=== PATIENT | male | born 1975 | race Caucasian/White ===

== ENCOUNTER 2024-05-10 08:29 | Inpatient (IN) | payer SELFPAY ==
[2024-05-10] VITALS (20 sets, daily range): BP systolic 93–152; BP diastolic 62–92; PULSE 96–132; RESP 16–32; TEMP 36.8–37.2; O2SAT 89–97; BMI 25.8; BMI 26.5
--- NOTE | 2024-05-10 08:28 | ECG_ITS ---
APPROVED REPORT Exam: Resting ECG HR:131 bpm ECG Measurements Heart Rate 131 AXES FL 124 P 62 QRSd 94 QRS 83 QT 333 T 237 QTc [address] DEVIATION AND MODERATE T-WAVE ABNORMALITY, CONSIDER INFERIOR ISCHEMIA [-0.1+ mV T-WAVE IN II/aVF] Electronically signed by : EPIFANIO COLLADO, 05/11/2024 19:41:39
--- NOTE | 2024-05-10 08:34 | CT_ITS ---
PROCEDURE INFORMATION: Exam: CT Abdomen And Pelvis With Contrast Exam date and time: 05/10/2024 9:18 AM Age: 48 years old Clinical indication: Abdominal pain; Flank; Left; Additional info: L flank pain TECHNIQUE: Imaging protocol: Computed tomography of the abdomen and pelvis with contrast. 3D rendering (Not supervised by radiologist): MIP and/or 3D reconstructed images were created by the technologist. Radiation optimization: All CT scans at this facility use at least one of these dose optimization techniques: automated exposure control; mA and/or kV adjustment per patient size (includes targeted exams where dose is matched to clinical indication); or iterative reconstruction. Contrast material: ISOVUE; Contrast volume: 70 ml; Contrast route: IV; COMPARISON: CT ANGIO CHEST PE PROTOCOL 05/10/2024 9:18 AM FINDINGS: Liver: Hepatic cirrhosis. Gallbladder and biliary ducts: Normal. No calcified stones. No ductal dilation. Pancreas: Normal. No ductal dilation. Spleen: Splenomegaly measures 17.7 cm in craniocaudal dimension. Adrenal glands: Normal. No mass. Kidneys and ureters: Normal. No hydronephrosis. Stomach and bowel: Bowel wall thickening within the ascending and descending colon, may be accentuated by adjacent ascites. Nonspecific colitis cannot be excluded. Appendix: No evidence of appendicitis. Intraperitoneal space: Moderate abdominal and pelvic ascites. Vasculature: Esophageal varices. No abdominal aortic aneurysm. Lymph nodes: Shotty inguinal lymph nodes bilaterally. Urinary bladder: Unremarkable as visualized. Reproductive: Unremarkable as visualized. Bones/joints: Unremarkable. No acute fracture. Soft tissues: Anasarca. IMPRESSION: 1. Splenomegaly measures 17.7 cm in craniocaudal dimension. 2. Hepatic cirrhosis with sequela of portal hypertension as detailed above. 3. Bowel wall thickening within the ascending and descending colon, may be accentuated by adjacent ascites. Nonspecific colitis cannot be excluded.
--- NOTE | 2024-05-10 08:36 | CT_ITS ---
PROCEDURE INFORMATION: Exam: CT Head Without Contrast Exam date and time: 05/10/2024 9:15 AM Age: 48 years old Clinical indication: Altered mental status/memory loss; Additional info: AMS TECHNIQUE: Imaging protocol: Computed tomography of the head without contrast. Radiation optimization: All CT scans at this facility use at least one of these dose optimization techniques: automated exposure control; mA and/or kV adjustment per patient size (includes targeted exams where dose is matched to clinical indication); or iterative reconstruction. COMPARISON: No relevant prior studies available. FINDINGS: Limitations: Study is technically limited due to motion artifact. Brain: Diffuse confluent decreased attenuation throughout the periventricular white matter bilaterally that may be due to extensive chronic white matter microvascular changes with diffuse leukoencephalopathy to be excluded. Small rounded cystic density projecting along the anterior aspect of the midbrain may be secondary to old infarct. No compelling evidence of acute infarct. There is no evidence of intracranial hemorrhage. Cortical sulci are unremarkable. Cerebral ventricles: Unremarkable for age. Paranasal sinuses: Visualized sinuses are unremarkable. No fluid levels. Mastoid air cells: Visualized mastoid air cells are well aerated. Bones: Unremarkable. No acute fracture. Soft tissues: Unremarkable. IMPRESSION: 1. Limited study. No acute intracranial abnormalities. 2. Small rounded hypodensity anterior aspect lung midbrain likely longstanding and may be secondary to old infarct which could be better assessed with MRI exam. 3. Findings are inconclusive for extensive white matter microvascular changes versus diffuse leukoencephalopathy which also could be better assessed with MRI examination.
--- NOTE | 2024-05-10 08:37 | XR_ITS ---
PROCEDURE INFORMATION: Exam: XR Chest Exam date and time: 05/10/2024 9:20 AM Age: 48 years old Clinical indication: Shortness of breath; Additional info: Hypoxia TECHNIQUE: Imaging protocol: Radiologic exam of the chest. Views: 1 view. COMPARISON: CT ANGIO CHEST PE PROTOCOL 05/10/2024 9:18 AM FINDINGS: Lungs: Patchy airspace opacities in the upper lobes bilaterally, concerning for infectious or inflammatory process. Pleural spaces: Large pleural effusions bilaterally. Heart/Mediastinum: Unremarkable. No cardiomegaly. Bones/joints: Unremarkable. IMPRESSION: 1. Large pleural effusions bilaterally. 2. Patchy airspace opacities in the upper lobes bilaterally, concerning for infectious or inflammatory process.
--- NOTE | 2024-05-10 08:37 | CT_ITS ---
PROCEDURE INFORMATION: Exam: CTA Chest With Contrast Exam date and time: 05/10/2024 9:18 AM Age: 48 years old Clinical indication: Other: Hypoxia TECHNIQUE: Imaging protocol: Computed tomographic angiography of the chest with contrast. Exam focused on the arteries. 3D rendering (Not supervised by radiologist): MIP and/or 3D reconstructed images were created by the technologist. Radiation optimization: All CT scans at this facility use at least one of these dose optimization techniques: automated exposure control; mA and/or kV adjustment per patient size (includes targeted exams where dose is matched to clinical indication); or iterative reconstruction. Contrast material: ISOVUE 370; Contrast volume: 70 ml; Contrast route: INTRAVENOUS (IV); COMPARISON: CT ABDOMEN PELVIS W CON 05/10/2024 9:18 AM FINDINGS: Pulmonary arteries: No central pulmonary embolism. Aorta: Unremarkable. No aortic aneurysm. No aortic dissection. Lungs: Patchy groundglass densities within the aerated upper and mid lung zones bilaterally, nonspecific finding. Differential includes infectious process, chronic interstitial disease, and acute alveolar disease. Bibasilar atelectasis. Pleural spaces: Large pleural effusions, right slightly larger than left. Heart: Unremarkable. No cardiomegaly. No pericardial effusion. Lymph nodes: Unremarkable. No enlarged lymph nodes. Bones/joints: Unremarkable. No acute fracture. Soft tissues: Unremarkable. IMPRESSION: 1. Evaluation of vascular structures severely limited by patient motion. 2. Large pleural effusions, right slightly larger than left. 3. Patchy groundglass densities within the aerated upper and mid lung zones bilaterally, nonspecific finding. Differential includes infectious process, chronic interstitial disease, and acute alveolar disease. Clinical correlation necessary.
--- NOTE | 2024-05-10 08:42 | PC.NURSE ---
spoke with pharmacy about antibiotics and spoke with rt regarding vbg
--- NOTE | 2024-05-10 08:42 | HMH.EDGENADL ---
Discharge Plan Disposition Patient Disposition: Admitted Clinical Impressions Clinical Impression: Cirrhosis, Acute and chronic respiratory failure with hypoxia Discharge ED Provider: Brandon Orellana General Adult HPI General Chief complaint: Shortness of Breath/Dyspnea Stated complaint: Altered Menal Status Time Seen by Provider: 05/10/24 08:33 Mode of Arrival: EMS Source of Information: Patient Limitations: Altered Mental Status Description of Symptoms (Recalled from ER Triage Doc. by RN): Reports confusion and shortness of air. Patient sats were in the 70s upon arrival by ems. History of Present Illness HPI narrative: This is a 48-year-old male with a past medical history of hepatitis C, hepatitis B, cirrhosis, COPD, hypertension who presents with altered mental status and hypoxia. Reports worsening confusion and difficulty breathing. Wears 2 L nasal cannula at home chronically. Was not wearing his nasal cannula throughout the night. reported that patient was hypoxic and not at his baseline mental status, worsening in confusion and called EMS today. Patient reports worsening abdominal and lower extremity swelling. EMS reports 70% SpO2 on room air on arrival. Initiated on a nonrebreather and transported for further evaluation. Related Data Allergies Allergy/AdvReac Type Severity Reaction Status Date / Time No Known Allergies Allergy Verified 05/10/24 08:41 [facility] Disclaimer: The information contained in this section may have been updated after the patient was seen, as this information can be updated by other users. Social History Smoking Status: Current every day smoker alcohol intake: former current occupational status: unemployed Travel in the last 8 weeks: None ROS Obtained: Yes unobtainable due to mental status Physical Exam General General appearance: other Comment: Somnolent but arousable, ill-appearing Head Head exam: atraumatic Eye Eye exam: Present normal appearance, PERRL and EOMI Respiratory Respiratory exam: Present respiratory distress Cardiovascular Cardiovascular exam: Present normal rhythm and tachycardia Abdominal Exam Abdominal exam: Present soft, distention and tenderness (Diffuse); Absent guarding or rebound Extremities Exam Extremities exam: Present edema (Bilateral, 2+ to the knees) Neurological Exam Neurological exam: Absent alert (Somnolent but arousable) Expanded Neurological Exam Patient oriented to: Present person; Absent place or time Coma scale eye opening: To voice Coma scale motor response: Obeys commands Coma scale verbal response: Confused Coma scale total: 13 Skin Skin exam: Present warm and dry Medical Decision Making Medical Records Medical records reviewed: Yes I reviewed the patient's medical records. Screening: Per USPSTF and CDC recommendations, given the prevalence of disease in our region, it is our hospital?s policy to screen for HIV and viral Hepatitis for all patients aged 18 and over and those with ongoing risk factors. Cristi Inquiry Pt receiving controlled substance: No Vital Signs: 05/10/24 08:31 05/10/24 08:44 05/10/24 09:01 Temperature 99.0 F Temperature Source Rectal Pulse Rate 127 H 129 H Pulse Rate [Radial] 129 H Respiratory Rate 22 18 27 H Blood Pressure 120/66 136/92 H Blood Pressure [Right Arm] 131/84 Blood Pressure Mean 84 106 Blood Pressure Mean [Right Arm] 99 Blood Pressure Source Blood Pressure Source [Right Arm] Automatic Cuff Blood Pressure Position Blood Pressure Position [Right Arm] Sitting 02 Sat by Pulse Oximetry 89 L 93 L 90 L Oxygen Delivery Method Nasal Cannula Nasal Cannula Nasal Cannula Oxygen Flow Rate (LPM) 3 2 2 05/10/24 09:32 05/10/24 10:01 05/10/24 10:02 Temperature Temperature Source Pulse Rate 128 H 130 H 132 H Pulse Rate [Radial] Respiratory Rate 19 Blood Pressure 152/71 H 127/77 125/69 Blood Pressure [Right Arm] Blood Pressure Mean 98 93 100 Blood Pressure Mean [Right Arm] Blood Pressure Source Blood Pressure Source [Right Arm] Blood Pressure Position Blood Pressure Position [Right Arm] 02 Sat by Pulse Oximetry 92 L 90 L 91 L Oxygen Delivery Method Nasal Cannula Nasal Cannula Nasal Cannula Oxygen Flow Rate (LPM) 2 2 2 05/10/24 10:21 05/10/24 11:08 05/10/24 11:44 Temperature 98.6 F Temperature Source Oral Pulse Rate 130 H 126 H 126 H Pulse Rate [Radial] Respiratory Rate 16 17 16 Blood Pressure 125/69 115/78 126/78 Blood Pressure [Right Arm] Blood Pressure Mean Blood Pressure Mean [Right Arm] Blood Pressure Source Automatic Cuff Blood Pressure Source [Right Arm] Blood Pressure Position Supine Blood Pressure Position [Right Arm] 02 Sat by Pulse Oximetry 90 L 90 L Oxygen Delivery Method Nasal Cannula Nasal Cannula Nasal Cannula Oxygen Flow Rate (LPM) 2 2 2 Lab Data Lab Results 05/10/24 08:32: WBC 12.9 H, RBC 4.54 L, Hgb 11.7 L, Hct 35.3 L, MCV 77.7 L, MCH 25.8 L, MCHC 33.1, RDW 19.1 H, Plt Count 82 L, MPV 7.2 L, Neut % (Auto) 90.4 H, Lymph % (Auto) 4.3 L, Dane % (Auto) 4.9, Eos % (Auto) 0.3, Baso % (Auto) 0.2, Neut # (Auto) 11.6 H, Lymph # (Auto) 0.5 L, Dane # (Auto) 0.6, Eos # (Auto) 0.0, Baso # (Auto) 0.0, Total Counted 100, Neutrophils % (Manual) 95 H, Lymphocytes % (Manual) 3 L, Monocytes % (Manual) 2, Platelet Estimate Moderate decrease, Anisocytosis 1+, Microcytosis 1+, Ovalocytes 1+, PT 18.7 H, INR 1.77 H, Sodium 133 L, Potassium 2.9 L*, Chloride 97 L, Carbon Dioxide 34 H, Anion Gap 4.9 L, BUN 8 L, Creatinine 0.60 L, Estimated Creat Clear 173, Estimated GFR 145, Est GFR ( Amer) 176, Glucose 85, Calcium 6.9 L, Total Bilirubin 2.3 H, AST 85 H, ALT 52, Alkaline Phosphatase 279 H, Total Protein 6.3, Albumin 2.2 L, Globulin 4.1 H, Albumin/Globulin Ratio 0.5 L, Lipase 77, Plasma/Serum Alcohol < 10 05/10/24 08:37: VBG pH 7.44 H, VBG pCO2 49.3, VBG pO2 55.3 H, VBG HCO3 32.9 H, VBG Total CO2 34.4 H, VBG O2 Saturation 88.5 H, VBG Base Excess 8.8 H, VBG Lactic Acid 2.1 H 05/10/24 09:55: Fluid Source Pleural fluid, Fluid Volume 55, Fluid Appearance Clear, Fluid RBC (Auto) < 10, Fld Tot Nucleated Cell 1103, Fld Polynuclear WBCs % 68, Fld Mononuclear WBCs % 32 05/10/24 08:32 05/10/24 08:32 Orders (Tests/Meds): ED MEDICATIONS Generic Name Dose Route Start Last Admin Trade Name Freq PRN Reason Stop Dose Admin Acetaminophen 650 mg 05/10/24 12:44 Acetaminophen 325mg Tab PO 06/09/24 12:43 Q4HP PRN Fever or Mild Pain (1-3) Piperacillin Sod/Tazobactam 100 mls @ 200 mls/hr 05/10/24 08:45 05/10/24 09:29 Sod 4.5 gm/ Sodium Chloride IV 05/20/24 08:44 200 mls/hr Q6H TANK Administration Lactulose 20 gm 05/10/24 12:50 05/10/24 13:20 Lactulose 20gm/30ml Udc PO 06/09/24 12:49 20 gm BID TANK Administration Ondansetron HCl 4 mg 05/10/24 12:44 Ondansetron 4mg/2ml Vial IV 06/09/24 12:43 Q8HP PRN Nausea Spironolactone 50 mg 05/10/24 12:20 05/10/24 13:21 Spironolactone 25mg Tablet PO 06/09/24 12:19 50 mg DAILY TANK Administration Discontinued Medications Generic Name Dose Route Start Last Admin Trade Name Freq PRN Reason Stop Dose Admin Albuterol/Ipratropium 3 ml 05/10/24 08:36 05/10/24 08:46 Ipratropium/Albuterol 3 Ml Neb IH 05/10/24 08:37 3 ml ONCE ONE Administration Furosemide 40 mg 05/10/24 10:34 05/10/24 12:18 Furosemide 40mg/4ml Vial IV 05/10/24 10:35 40 mg ONCE ONE Administration Hydromorphone HCl 0.5 mg 05/10/24 09:31 05/10/24 09:40 Hydromorphone 2mg/Ml Syringe IV 05/10/24 09:32 0.5 mg ONCE ONE Administration Lactated Ringer's 500 mls @ 999 mls/hr 05/10/24 08:36 05/10/24 08:46 Lactated Ringer's 500ml IV 05/10/24 09:06 999 mls/hr .Q31M ONE Administration Vancomycin/PEG/NADA/Lysine/Water 1.5 gm in 300 mls @ 150 mls/hr 05/10/24 09:00 05/10/24 13:20 Vancomycin 1.5gm/300ml (Peg) Premix IV 05/10/24 10:59 150 mls/hr ONCE ONE Administration Potassium Chloride/Water 100 mls @ 100 mls/hr 05/10/24 09:00 05/10/24 12:17 Potassium Chloride 10meq/100ml Ivpb IV 05/10/24 11:59 100 mls/hr Q1H TANK Administration Iopamidol 70 ml 05/10/24 09:33 05/10/24 09:35 Iopamidol-300 (61%) 100ml Vial IV 05/10/24 09:34 70 ml ONCE ONE Administration Protocol Lidocaine/Epinephrine 10 ml 05/10/24 09:38 05/10/24 11:20 Lidocaine 1% W/Epi 1:100,000 20ml Vial IJ 05/10/24 09:39 Not Given ONCE ONE Miscellaneous 1 each 05/10/24 08:45 Vancomycin Consult Request NOTAPPLIC 06/09/24 08:44 CONSULT PHARMACY ATNK Sodium Chloride 10 ml 05/10/24 09:33 05/10/24 09:34 Sodium Chloride 0.9% 10ml Syr (Rad Only) IV 05/10/24 09:34 10 ml ONCE ONE Administration Sodium Chloride 50 ml 05/10/24 09:33 05/10/24 09:34 0.9 % Sodium Chloride 50 Ml Vial IV 05/10/24 09:34 50 ml ONCE ONE Administration ORDERS Category Date Time Status CT abdomen pelvis w con Stat Cat Scan 05/10/24 08:[address] head/brain wo con Stat Cat Scan 05/10/24 08:36 Completed CTA Chest [CT angio chest PE protocol] Stat Cat Scan 05/10/24 08:37 Completed Chest XR -- portable [XR chest portable] Stat Exams 05/10/24 08:37 Completed Chest XR -- portable [XR chest portable] Stat Exams 05/10/24 10:04 Completed POCUS Point of Care (ER Only) Stat Exams 05/10/24 08:41 Completed Blood alcohol [Ethyl Alcohol] Stat Lab 05/10/24 08:32 Completed Body Fluid: Cell Count w/ Diff Stat Lab 05/10/24 09:55 Completed CBC w/Auto Diff [Complete Blood Count Auto Diff] Stat Lab 05/10/24 08:32 Completed CMP [Comprehensive Metabolic Panel] Stat Lab 05/10/24 08:32 Completed Lactate Venous Stat Lab 05/10/24 08:36 Ordered Lipase Stat Lab 05/10/24 08:32 Completed PT/INR [Prothrombin Time INR] Stat Lab 05/10/24 08:32 Completed UDS [Drug Screen,Urine] Stat Lab 05/10/24 12:50 Completed Urinalysis and Microscopic Stat Lab 05/10/24 12:50 Completed Blood Culture Stat Micro 05/10/24 08:40 Received Body Fluid Cult & Gram Stain Stat Micro 05/10/24 09:55 Results Urine Culture Stat Micro 05/10/24 12:50 Received VBG [Venous Blood Gas] Stat RT 05/10/24 08:37 Completed ECG Data Tracing #1: I reviewed this ECG and interpreted as documented below: Sinus tachycardia at a rate of 131, normal axis, QTc 410, no STEMI Medical Decision Narrative: In summary, this 48-year-old male with a past medical history of HCV, HBV, cirrhosis, COPD on 2 L nasal cannula, hypertension presents to the emergency department today with altered mental status, hypoxia, and shortness of breath. On initial evaluation patient is ill-appearing, somnolent but arousable with a GCS of 13, tachycardic to the 130s, normotensive, satting 89% on nasal cannula. Differential diagnosis includes but is not limited to hepatic encephalopathy, sepsis, SBP, pneumonia, COPD exacerbation, alcohol intoxication. Based on these concerns, I ordered CBC, CMP, VBG, lipase, alcohol, UDS, urinalysis, urine culture, blood culture, chest x-ray, CT abdomen pelvis with IV contrast, CT head. ECG personally interpreted as noted above. Patient received 500 cc of lactated Ringer's, vancomycin and Zosyn for broad-spectrum coverage of presumed sepsis for treatment. Labs personally reviewed demonstrate MELD sodium of 20 with an INR of 1.77, sodium of 133, normal creatinine at 0.60, bilirubin of 2.3, hypokalemia 2.9, respiratory alkalosis with venous pH of 7.44, lactate of 2.1, white blood cell count of 12.9. XR personally interpreted demonstrates very large bilateral pleural effusions. CT imaging personally interpreted demonstrates large bilateral pleural effusions and moderate ascites. Perform thoracentesis at bedside and send off fluid studies. Consulted hospital medicine for admission. Procedures Miscellaneous Procedure Procedure Performed: Lung ultrasound Limited lung ultrasound A focused ultrasound exam of the pleural spaces was performed to evaluate for pneumothorax, pulmonary edema, pleural effusion and/or consolidation. The ultrasound was performed with the following indications, as noted in the H&P: Hypoxia Identified structures: Bilateral thoracic cavities were examined. Findings: Lung sliding: -Present Pleural effusion: -Bilateral Impression: Bilateral pleural effusions Images were saved to permanent archive The study was technically adequate [facility] [id number] This study was performed by me, and I personally interpreted all images/videos. Based on my clinical judgement, these images were adequate and did not necessitate further imaging. Thoracentesis Performed thoracentesis at bedside. Consent was obtained by patient's given that he was unable to give consent due to his encephalopathy. Risks and benefits of procedure were explained to her and she was in agreement. Alternatives offered included no treatment, alternative treatment, and observation. Patient was prepped and draped in sterile fashion. Positioned on his left lateral decubitus with right thoracic cavity in the air. Performed in the fourth intercostal space, posterior axillary line. Static ultrasound was used to determine the best site for placement. Local anesthesia was achieved with lidocaine 1% with epinephrine, 10 mL. Performed thoracentesis with catheter over needle with safety centesis kit. Drained 1 L of cloudy, yellow fluid from the right chest cavity. Patient tolerated the procedure well. Removed catheter and placed Vaseline gauze over the site. Repeat chest x-ray showed no pneumothorax and improvement in aeration. No complications Critical Care Critical Care Time Critical Care Time: No
[2024-05-10 08:45] LABS: Basophils % 0.2 % (0.1-2.0); Eosinophils % 0.3 % (0.1-12.0); Hematocrit 35.3 % (42.0-52.0); Hemoglobin 11.7 g/dL (14.1-18.0); Lymphocytes # 0.5 K/mm3 (0.7-4.5); Lymphocytes % 4.3 % (10-50); Mean Corpuscular HGB Conc 33.1 g/dL (31.8-35.4); Mean Corpuscular Hemoglobin 25.8 pg (27.0-31.2); Mean Corpuscular Volume 77.7 fl (80-94); Mean Platelet Volume 7.2 fl (7.4-10.4); Monocytes # 0.6 K/mm3 (0.1-1.0); Monocytes % 4.9 % (1.7-9.3); Neutrophils # 11.6 K/mm3 (1.8-7.8); Neutrophils % 90.4 % (37.0-80.0); Platelet Count 82 K/mm3 (142-424); Red Blood Count 4.54 M/mm3 (4.60-6.20); Red Cell Distribution Width 19.1 % (11.5-17.5); White Blood Count 12.9 K/mm3 (4.8-10.8)
[2024-05-10] MEDS: RINGERS SOLUTION,LACTATED 500 ML 999 ML IV (08:46)
[2024-05-10] MEDS: IPRATROPIUM/ALBUTEROL 3 ML NEB IH ×2 (08:46→20:49)
[2024-05-10 08:48] LABS: MANUAL DIFFERENTIAL MANUAL DIFFERENTIAL (MANUAL DIFF)
[2024-05-10 08:48] LABS: VBG Base Excess 8.8 mmol/L (-2.4-2.3); VBG HCO3 32.9 mmol/L (23-30); VBG Oxygen Saturation 88.5 % (50-70); VBG PCO2 49.3 mmol/L (35-51); VBG PH 7.44 mmol/L (7.31-7.41); VBG PO2 55.3 mmol/L (28-40); VBG Total CO2 34.4 mmol/L (23-27)
[2024-05-10 08:49] LABS: Lactate Venous 2.1 mmol/L (0.4-2.0)
[2024-05-10 08:53] LABS: Alanine Aminotransferase 52 U/L (12-78); Albumin Level 2.2 g/dl (3.5-5.0); Albumin/Globulin Ratio 0.5 (1.1-1.8); Alkaline Phosphatase 279 U/L (38-126); Anion Gap 4.9 mEq/L (5-15); Aspartate Amino Transferase 85 U/L (17-59); Bilirubin,Total 2.3 mg/dl (0.2-1.3); Blood Urea Nitrogen 8 mg/dl (9-20); Calcium 6.9 mg/dl (8.4-10.2); Carbon Dioxide 34 mmol/L (22.0-30.0); Chloride 97 mmol/L (98-107); Creatinine Clearance Estimated 173 mL/min (50-200); Estimated Glomerular Filt Rate 145 ml/min (>60); GFR (African American) 176 ML/MIN (>60); Globulin 4.1 g/dL (1.3-3.2); Glucose 85 mg/dl (74-100); Lipase 77 U/L (23-300); Sodium 133 mmol/L (136-145); Total Protein,Serum 6.3 g/dl (6.3-8.2)
[2024-05-10 08:55] LABS: Ethyl Alcohol < 10 mg/dl (0-10); INR 1.77 (0.9-1.1); Prothrombin Time 18.7 seconds (10.1-12.5)
[2024-05-10 08:56] LABS: Potassium 2.9 mmoL/L (3.5-5.1)
--- NOTE | 2024-05-10 08:59 | PC.NURSE ---
Called [facility] for medical records
[2024-05-10 09:04] LABS: Lymphocytes % 3 % (10-50); Monocytes % 2 % (2-9); Neutrophils % 95 % (42-76); Total Cells Counted 100
[2024-05-10 09:05] LABS: Anisocytosis 1+; Microcytosis 1+; Ovalocytes 1+; Platelet Estimate Moderate Decrease
--- NOTE | 2024-05-10 09:08 | PC.NURSE ---
pt to ct
[2024-05-10] MEDS: PIPERACILLIN/TAZO 4.5 GM in 0.9 % SODIUM CHLORIDE 100 ML IV (09:29)
[2024-05-10] MEDS: SODIUM CHLORIDE 0.9% 10ML SYR (RAD ONLY) 10 ML IV (09:34)
[2024-05-10] MEDS: 0.9 % SODIUM CHLORIDE 50 ML VIAL IV (09:34)
[2024-05-10] MEDS: IOPAMIDOL-300 (61%) 100ML VIAL 70 ML IV (09:35)
[2024-05-10] MEDS: HYDROMORPHONE 2MG/ML SYRINGE 0.5 MG IV (09:40)
--- NOTE | 2024-05-10 10:04 | XR_ITS ---
PROCEDURE INFORMATION: Exam: XR Chest Exam date and time: 05/10/2024 10:17 AM Age: 48 years old Clinical indication: Pain; Other: S/P thora; Additional info: Repeat S/P thoracentesis TECHNIQUE: Imaging protocol: Radiologic exam of the chest. Views: 1 view. COMPARISON: CR XR CHEST PORTABLE 05/10/2024 9:20 AM FINDINGS: Lungs: Patchy airspace opacities in the upper lobes bilaterally, concerning for infectious inflammatory process. Pleural spaces: Slight decrease in right sided pleural effusion since previous. Large pleural effusions bilaterally again noted. No pneumothorax identified. Heart/Mediastinum: Unremarkable. No cardiomegaly. Bones/joints: Unremarkable. IMPRESSION: 1. Slight decrease in right sided pleural effusion since previous. Large pleural effusions bilaterally again noted. 2. No pneumothorax identified. 3. Patchy airspace opacities in the upper lobes bilaterally, concerning for infectious inflammatory process.
[2024-05-10 10:15] LABS: Appearance,Body Fld. CLEAR; Source, Body Fld. Pleural Fluid; Volume,Body Fld. 55 mL
[2024-05-10 10:16] LABS: RBC,Body Fluid < 10 cells/uL (< 10 X 10^3); TNC,Body Fluid 1103 cells/uL (< 1000)
--- NOTE | 2024-05-10 10:26 | PC.NURSE ---
DR WILLIAMSON SPEAKING WITH HOSPITALIST
[2024-05-10] MEDS: KCl 10mEq/100ml 100 ML 100 MEQ IV ×3 (10:28→15:48)
--- NOTE | 2024-05-10 10:32 | PC.NURSE ---
INFRASTRUCTURE TECHNICIAN NOTIFIED OF ADMISSION
[2024-05-10 10:35] LABS: Mononuclear WBCs,Body Fluid 32 %; Polynuclear WBC,Body Fluid 68 %
--- NOTE | 2024-05-10 10:59 | PC.NURSE ---
Report given to JUANCHO Hung on Med Surg.
--- NOTE | 2024-05-10 12:09 | EXP.HP ---
History of Present Illness *Admission Date: 05/10/24 *Reason for visit:: Decompensated cirrhosis *History of present illness: Ruslan Haley is a 48-year-old male with a medical history significant for cirrhosis, hepatitis C, hepatitis B, hypertension, opioid use disorder on methadone who presents with worsening confusion for the past few days and hypoxia. Most history was obtained from patient's as patient is currently somewhat encephalopathic. states patient has a history of cirrhosis, never has really been a alcohol drinker, however has had hepatitis which apparently has not been treated as patient's family thought it would resolve on its own. Per , patient has been more confused over the past few days and had significant volume overload this past week. They followed up with her PCP who prescribed torsemide, in addition to patient's home Lasix and spironolactone for volume overload. This seemed to have resolved fluid overload. However, patient's confusion has not resolved. EMS states patient's home oxygen was in the 70s. Tachycardic up to 129. Currently requiring 3 L nasal cannula. Workup in the ED significant for WBC 12.9, platelet 82, potassium 2.9, total bili 2.3, AST 85, ALP 79. ED provider did a diagnostic paracentesis which revealed polynuclear WBCs 750. UDS positive for methadone. Case discussed with ED provider and decision was made to admit patient for sepsis secondary to SBP, and decompensated cirrhosis. [facility] Disclaimer: The information contained in this section may have been updated after the patient was seen, as this information can be updated by other users. Social History Smoking Status: Current every day smoker alcohol intake: former current occupational status: unemployed Travel in the last 8 weeks: None Other Medical History Have you received the Flu Vaccine for this season: No Have you received the Pneumonia Vaccine: No Meds Home Medications and Allergies New Prescriptions to Start Prescriptions: Allergies Allergy/AdvReac Type Severity Reaction Status Date / Time No Known Allergies Allergy Verified 05/10/24 08:41 Exam Data for Last 24 hours Vital signs and Labs for Last 24 Hours: Temp Pulse Resp BP Pulse Ox O2 Del Method O2 Flow Rate 98.6 F 126 H 16 126/78 90 L Nasal Cannula 2 05/10/24 11:44 05/10/24 11:44 05/10/24 11:44 05/10/24 11:44 05/10/24 11:08 05/10/24 11:44 05/10/24 11:44 Laboratory Results - last 24 hr 05/10/24 08:32: WBC 12.9 H, RBC 4.54 L, Hgb 11.7 L, Hct 35.3 L, MCV 77.7 L, MCH 25.8 L, MCHC 33.1, RDW 19.1 H, Plt Count 82 L, MPV 7.2 L, Neut % (Auto) 90.4 H, Lymph % (Auto) 4.3 L, [place] % (Auto) 4.9, Eos % (Auto) 0.3, Baso % (Auto) 0.2, Neut # (Auto) 11.6 H, Lymph # (Auto) 0.5 L, [place] # (Auto) 0.6, Eos # (Auto) 0.0, Baso # (Auto) 0.0, Total Counted 100, Neutrophils % (Manual) 95 H, Lymphocytes % (Manual) 3 L, Monocytes % (Manual) 2, Platelet Estimate Moderate decrease, Anisocytosis 1+, Microcytosis 1+, Ovalocytes 1+, PT 18.7 H, INR 1.77 H, Sodium 133 L, Potassium 2.9 L*, Chloride 97 L, Carbon Dioxide 34 H, Anion Gap 4.9 L, BUN 8 L, Creatinine 0.60 L, Estimated Creat Clear 173, Estimated GFR 145, Est GFR ( Amer) 176, Glucose 85, Calcium 6.9 L, Total Bilirubin 2.3 H, AST 85 H, ALT 52, Alkaline Phosphatase 279 H, Total Protein 6.3, Albumin 2.2 L, Globulin 4.1 H, Albumin/Globulin Ratio 0.5 L, Lipase 77, Plasma/Serum Alcohol < 10 05/10/24 08:37: VBG pH 7.44 H, VBG pCO2 49.3, VBG pO2 55.3 H, VBG HCO3 32.9 H, VBG Total CO2 34.4 H, VBG O2 Saturation 88.5 H, VBG Base Excess 8.8 H, VBG Lactic Acid 2.1 H 05/10/24 09:55: Fluid Source Pleural fluid, Fluid Volume 55, Fluid Appearance Clear, Fluid RBC (Auto) < 10, Fld Tot Nucleated Cell 1103, Fld Polynuclear WBCs % 68, Fld Mononuclear WBCs % 32 I & O for Last 24 hours: Intake & Output 05/07/24 05/08/24 05/09/24 05/10/24 23:59 23:59 23:59 23:59 Weight 79.379 kg Constitutional Constitutional: no acute distress Comments: Intermittently confused. *Routine HEENT Exam Head: Present normocephalic Eye: Present EOMI and PERRL ENT: Present mucous membranes moist *Routine Neck Exam Neck: Present supple; Absent lymphadenopathy *Routine Respiratory Exam Respiratory: Present CTA bilaterally *Routine Cardiovascular Exam Cardiovascular: Present RRR *Routine Abdominal Exam Abdominal: Present soft, normoactive bowel sounds and tenderness Comments: Distended abdomen with minimal fluid wave. Tenderness to palpation in the lower quadrants. No peritoneal signs. *Routine Rectal Exam Rectal:: deferred *Routine Genitalia Exam Genitalia:: deferred *Routine Extremities Exam Extremities: Absent cyanosis, clubbing or edema *Routine Skin Exam Skin: Present warm; Absent rash *Routine Neurological Exam Neurological: Present alert Assessment and Plan *Assessment and plan (1) Acute and chronic respiratory failure with hypoxia: Status: Acute Category: Medical Code(s): J96.21 - Acute and chronic respiratory failure with hypoxia (2) Cirrhosis: Status: Acute Category: Medical Code(s): K74.60 - Unspecified cirrhosis of liver (3) Decompensated cirrhosis: Status: Acute Category: Medical Code(s): K72.90 - Hepatic failure, unspecified without coma; K74.60 - Unspecified cirrhosis of liver (4) SBP (spontaneous bacterial peritonitis): Status: Acute Category: Medical Code(s): K65.2 - Spontaneous bacterial peritonitis (5) Hepatic encephalopathy: Status: Acute Category: Medical Code(s): K76.82 - Hepatic encephalopathy (6) Bilateral pleural effusion: Status: Acute Category: Medical Code(s): J90 - Pleural effusion, not elsewhere classified (7) Pulmonary edema: Status: Acute Category: Medical Code(s): J81.1 - Chronic pulmonary edema (8) Opioid use disorder: Status: Acute Category: Medical Code(s): F11.90 - Opioid use, unspecified, uncomplicated (9) History of hepatitis: Status: Acute Category: Medical Code(s): Z86.19 - Personal history of other infectious and parasitic diseases Plan Ruslan Haley is a 48-year-old male with a medical history significant for cirrhosis, hepatitis C, hepatitis B, hypertension, opioid use disorder on methadone who presents with worsening confusion for the past few days and hypoxia. Most history was obtained from patient's as patient is currently somewhat encephalopathic. states patient has a history of cirrhosis, never has really been a alcohol drinker, however has had hepatitis which apparently has not been treated as patient's family thought it would resolve on its own. Per , patient has been more confused over the past few days and had significant volume overload this past week. They followed up with her PCP who prescribed torsemide, in addition to patient's home Lasix and spironolactone for volume overload. This seemed to have resolved fluid overload. However, patient's confusion has not resolved. EMS states patient's home oxygen was in the 70s. Tachycardic up to 129. Currently requiring 3 L nasal cannula. Workup in the ED significant for WBC 12.9, platelet 82, potassium 2.9, total bili 2.3, AST 85, ALP 79. ED provider did a diagnostic paracentesis which revealed polynuclear WBCs 750. UDS positive for methadone. Case discussed with ED provider and decision was made to admit patient for sepsis secondary to SBP, and decompensated cirrhosis. #Sepsis #Spontaneous bacterial peritonitis #Decompensated cirrhosis #Hepatic encephalopathy #Acute hypoxic respiratory failure #Large bilateral pleural effusions #Pulmonary edema #History of esophageal varices ? Patient intermittently confused, disoriented, hyperreflexive. No focal neurological signs. CT head did not show acute findings. ? CT abdomen/pelvis reveals moderate abdominal and pelvic ascites, and esophageal varices. Also showed bowel wall thickening of the ascending and descending colon, infectious versus accentuation from ascites. ? MELD sodium score 18, 6% estimated 3-month mortality. Apparently follows with GI, but has not in quite some time. says no alcohol use for many years. ? Bilateral lower extremity pitting edema 2+ to above knees. CTA chest shows large bilateral pleural effusions, right larger than left. Patchy groundglass densities likely represent pulmonary edema versus pneumonia. ? Diagnostic paracentesis revealed polynuclear WBCs 750. There is minimal abdominal fluid wave, tenderness to palpation without peritoneal signs. ? Initial WBC 12.9 with tachycardia up to 127. Ammonia normal at 11. ? Per , patient has been compliant with Lasix 40 mg, spironolactone 50 mg at home. ? Started IV Lasix 40 mg twice daily, spironolactone 50 mg. Follow urine output, renal function, electrolytes. ? Lactulose 20 mg twice daily, goal 2-3 bowel movements per day. ? Started Coreg 6.25 mg twice daily for history of esophageal varices and tachycardia up to 130. ? Ceftriaxone, Flagyl day 1. Flagyl for possible colitis. ? Follow-up blood cultures. #History of hepatitis C, hepatitis B ?Presumably has not been treated. ? Follow-up hepatitis panel. Will need quantitative testing if these are positive. #History of opioid use disorder ? Takes methadone 75 mg daily. Prescribed by [facility]. History of heroin use disorder. states he has not been using illicit opioids for the past 8 years. ? Pending verification by pharmacy. Full code DVT prophylaxis: SCDs, thrombocytopenia
[2024-05-10] MEDS: FUROSEMIDE 40MG/4ML VIAL 40 MG IV ×2 (12:18→15:40)
[2024-05-10 12:50] LABS: Reflex Lactic Add Lactic Reflex
[2024-05-10 12:54] LABS: Microscopic, Urine URINE MICROSCOPIC (MICROSCOPIC)
[2024-05-10 12:57] LABS: Appearance,Urine CLEAR (Clear); Bilirubin,Urine Negative (Negative); Blood, Urine TRACE-I (Negative); Color,Urine YELLOW (Yellow); Glucose,Urine (UA) Negative (Negative); Ketones,Urine Negative (Negative); Leukocyte Esterase,Urine Negative (Negative); Nitrate,Urine Negative (Negative); Protein,Urine Negative (Negative); Urobilinogen,Urine 0.2 EU/dl (0.2)
[2024-05-10 13:04] LABS: Bacteria,Urine Trace /lpf; RBC,Urine Occasional #/hpf (0-3); Squamous Epithelial Cell,Urine Occasional #/hpf (0-5)
[2024-05-10 13:08] LABS: Barbiturates Screen,Urine Negative ng/ml (<200)
[2024-05-10 13:09] LABS: Amphetamine/Metha Screen,Urine Negative ng/ml (<1000); Benzodiazepines Screen,Urine Negative ng/ml (<200)
[2024-05-10 13:10] LABS: Cannabinoid Screen,Urine Negative ng/ml (<50)
[2024-05-10 13:11] LABS: Cocaine Screen,Urine Negative ng/ml (<300); Methadone Screen,Urine Positive ng/ml (<300)
[2024-05-10 13:12] LABS: Opiate Screen,Urine Negative ng/ml (<300)
[2024-05-10 13:13] LABS: Phencyclidine Screen,Urine Negative ng/ml (<25)
[2024-05-10] MEDS: VANCOMYCIN/WATER FOR INJ (PEG) 1.5 GM/300 ML PIGGYBACK IV (13:20)
[2024-05-10] MEDS: LACTULOSE 20GM/30ML UDC 20 GM PO ×2 (13:20→20:03)
[2024-05-10] MEDS: SPIRONOLACTONE 25MG TABLET 50 MG PO (13:21)
[2024-05-10 13:30] LABS: Lactic Acid Follow Up (RFLX 1) 2.2 mmol/L (0.7-2.1)
[2024-05-10 14:01] LABS: Ammonia 11 umol/L (9-30)
[2024-05-10 15:16] LABS: Reflex Lactic (2 hrs) Add Lactic Reflex
[2024-05-10 16:03] LABS: Lactic Acid Follow up (RFLX 2) 1.7 mmol/L (0.7-2.1)
[2024-05-10] MEDS: METRONIDAZ/SOD CHL 500 MG/100 ML PIGGYBACK 100 MG IV ×2 (17:14→23:23)
[2024-05-10 18:08] LABS: Chloride 98 mmol/L (98-107); Sodium 135 mmol/L (136-145)
[2024-05-10 18:11] LABS: Anion Gap 6.8 mEq/L (5-15); Blood Urea Nitrogen 9 mg/dl (9-20); Calcium 7.1 mg/dl (8.4-10.2); Carbon Dioxide 33 mmol/L (22.0-30.0); Creatinine Clearance Estimated 172 mL/min (50-200); Estimated Glomerular Filt Rate 145 ml/min (>60); GFR (African American) 176 ML/MIN (>60); Glucose 56 mg/dl (74-100); Magnesium 1.4 mg/dl (1.6-2.3)
[2024-05-10] MEDS: CEFTRIAXONE SODIUM 2 GM in 0.9 % SODIUM CHLORIDE 100 ML IV (18:18)
[2024-05-10 18:20] LABS: Potassium 2.8 mmoL/L (3.5-5.1)
[2024-05-10] MEDS: CARVEDILOL 6.25MG TABLET 6.25 MG PO (18:20)
--- NOTE | 2024-05-10 18:28 | PC.NURSE ---
hospitalist made aware of critical K+ of 2.8. no new orders. instructed to follow electrolyte replacement protocol.
[2024-05-10] MEDS: POTASSIUM CHLORIDE 20MEQ TAB 40 MEQ PO ×2 (18:59→23:23)
[2024-05-10] MEDS: MAGNESIUM SULFATE IN WATER 2 GM/50 ML PIGGYBACK IV ×3 (18:59→21:15)
--- NOTE | 2024-05-10 20:01 | PC.NURSE ---
updated med list by external pharmacy
--- NOTE | 2024-05-10 20:53 | ECG_ITS ---
APPROVED REPORT Exam: Resting ECG HR:95 bpm ECG Measurements Heart Rate 95 AXES SC 143 P 68 QRSd 106 QRS 60 QT 314 T -5 QTc 367 Conclusion SINUS RHYTHM NONSPECIFIC ST & T-WAVE ABNORMALITY ABNORMAL ECG UNCONFIRMED REPORT Electronically signed by : Franky Luo MD 05/11/2024 21:19:51
[2024-05-10] MEDS: FAMOTIDINE 20MG/2ML VIAL 20 MG IV (21:18)
--- NOTE | 2024-05-10 21:27 | PC.NURSE ---
upon assess patient around 1999, patient alert to name and birthday. he was SOB on 2L NC around 78% then increased to 4L NC and maintained above 90%, abd ascitic but non-tender, wheezing lung sounds (RT gave stat duoneb), pitting thigh edema - Hospitalist notified and came to bedside. Patient is being transferred to ICU from [facility]. Patient wanted me to contact , attempted to call the number he provided [phone] and person on the other line stated they wasn't Naomie - Patient was informed we have a Ashley listed as his person to notify and he declined us notifying her at this time, patients wishes followed.
--- NOTE | 2024-05-10 21:36 | P.PN_ITS ---
<Statement entered by Almas Shepard MD - 05/11/24 22:45> I personally examined patient and agree with CORPORATE STRATEGIST's plan of care. Subjective *Date: 05/10/24 *Time: 21:49 Interval history: Notified by nurse on the floor that the patient's O2 saturations were down to 85 % on 2 L nasal cannula nurse had increased that to 4 L before I arrived. Patient is alert and oriented, speech is a little slurred but he does know where he is who he is and what is going on and answers my questions well he does not really show signs of respiratory distress but respiratory rate greater than 30. He expressed that he is not in pain at this time and is not nauseated. Also noting low blood sugars, before meals and at bedtime blood sugar ordered Exam Data for Last 24 hours Vital signs and Labs for Last 24 Hours: Temp Pulse Resp BP Pulse Ox O2 Del Method O2 Flow Rate 98.7 F 98 H 32 H 93/66 L 95 Nasal Cannula 4 05/10/24 20:00 05/10/24 21:14 05/10/24 21:00 05/10/24 21:00 05/10/24 21:00 05/10/24 21:00 05/10/24 21:00 Laboratory Results - last 24 hr 05/10/24 08:32: WBC 12.9 H, RBC 4.54 L, Hgb 11.7 L, Hct 35.3 L, MCV 77.7 L, MCH 25.8 L, MCHC 33.1, RDW 19.1 H, Plt Count 82 L, MPV 7.2 L, Neut % (Auto) 90.4 H, Lymph % (Auto) 4.3 L, [place] % (Auto) 4.9, Eos % (Auto) 0.3, Baso % (Auto) 0.2, Neut # (Auto) 11.6 H, Lymph # (Auto) 0.5 L, [place] # (Auto) 0.6, Eos # (Auto) 0.0, Baso # (Auto) 0.0, Total Counted 100, Neutrophils % (Manual) 95 H, Lymphocytes % (Manual) 3 L, Monocytes % (Manual) 2, Platelet Estimate Moderate decrease, Anisocytosis 1+, Microcytosis 1+, Ovalocytes 1+, PT 18.7 H, INR 1.77 H, Sodium 133 L, Potassium 2.9 L*, Chloride 97 L, Carbon Dioxide 34 H, Anion Gap 4.9 L, BUN 8 L, Creatinine 0.60 L, Estimated Creat Clear 173, Estimated GFR 145, Est GFR ( Amer) 176, Glucose 85, Calcium 6.9 L, Total Bilirubin 2.3 H, AST 85 H, ALT 52, Alkaline Phosphatase 279 H, Total Protein 6.3, Albumin 2.2 L, Globulin 4.1 H, Albumin/Globulin Ratio 0.5 L, Lipase 77, Plasma/Serum Alcohol < 10 05/10/24 08:37: VBG pH 7.44 H, VBG pCO2 49.3, VBG pO2 55.3 H, VBG HCO3 32.9 H, VBG Total CO2 34.4 H, VBG O2 Saturation 88.5 H, VBG Base Excess 8.8 H, VBG Lactic Acid 2.1 H 05/10/24 09:55: Fluid Source Pleural fluid, Fluid Volume 55, Fluid Appearance Clear, Fluid RBC (Auto) < 10, Fld Tot Nucleated Cell 1103, Fld Polynuclear WBCs % 68, Fld Mononuclear WBCs % 32 05/10/24 12:50: Urine Color Yellow, Urine Appearance Clear, Urine pH 7.0, Ur Specific [place] 1.010, Urine Protein Negative, Urine Glucose (UA) Negative, Urine Ketones Negative, Urine Blood Trace-i, Urine Nitrate Negative, Urine Bilirubin Negative, Urine Urobilinogen 0.2, Ur Leukocyte Esterase Negative, Urine RBC Occasional, Urine WBC None, Ur Squamous Epith Cells Occasional, Urine Bacteria Trace, Urine Opiates Screen Negative, Urine Methadone Screen Positive H , Ur Barbituates Screen Negative, Ur Phencyclidine Scrn Negative, Ur Amphetamines Screen Negative, U Benzodiazepines Scrn Negative, Urine Cocaine Screen Negative, U Marijuana (THC) Screen Negative 05/10/24 13:15: Lactate 2.2 H 05/10/24 13:45: Ammonia 11 05/10/24 15:27: Lactate 1.7 05/10/24 17:45: Sodium 135 L, Potassium 2.8 L*, Chloride 98, Carbon Dioxide 33 H , Anion Gap 6.8, BUN 9, Creatinine 0.60 L, Estimated Creat Clear 172, Estimated GFR 145, Est GFR ( Amer) 176, Glucose 56 L D, Calcium 7.1 L, Magnesium 1.4 L I & O for Last 24 hours: Intake & Output 05/08/24 05/09/24 05/10/24 05/11/24 05:59 05:59 05:59 05:59 Intake Total 708 / 708 Output Total 1000 / 1000 Balance -292 / -292 Weight 174 lb 8 oz Microbiology Reports for the Last 24 Hours: Microbiology 05/10/24 09:55 Pleural Fluid Gram Stain - Final Radiology Reports for the Last 24 Hours: Chest x-ray has been ordered will get that in about an hour after the patient is settled into the ICU and compared to previous Constitutional Constitutional: mild distress, thin, chronically ill appearing, cooperative and somnolent *Routine HEENT Exam ENT: Present mucous membranes moist *Routine Neck Exam Neck: Present supple *Routine Respiratory Exam Respiratory: Present accessory muscle use, decreased breath sounds, respiratory distress (Oxygen saturation in low 80s on 2 L nasal), rhonchi, wheezes and diminished air movement Comments: Both lungs are diminished. Right lung more diminished than left light rhonchi heard, throughout also end expiratory wheezing noted . Patient when he speaks his voice is clear no sounds of rattling *Routine Cardiovascular Exam Cardiovascular: Present RRR and tachycardia *Routine Abdominal Exam Abdominal: Present soft Comments: Nontender *Routine Skin Exam Skin: Present intact Comments: Skin color slightly pale but does appear to be normal, *Routine Neurological Exam Neurological: Present alert, oriented X3, CN II-XII intact, vision grossly intact, hearing grossly intact and normal speech Comments: Patient asked somnolent, once he opens his eyes and begins to speak you can tell that he is clear and that he knows where he is at. Talked about his condition he expressed understanding of what his body is going through. Routine Psychiatric Exam Psychiatric: Present good insight Comments: Patient's thinking I believe is clear but as noted sort of somnolent. Time I have met him so I am unsure what his baseline is. But he expressed good insight as I described what was going on with him physically. Dates he does not use any illicit drugs at this time and does not drink, still occasionally has a cigarette, Assessment and Plan *Assessment and plan (1) Acute and chronic respiratory failure with hypoxia: Status: Acute Category: Medical Code(s): J96.21 - Acute and chronic respiratory failure with hypoxia (2) Hypoglycemia: Status: Acute Category: Medical Code(s): E16.2 - Hypoglycemia, unspecified Plan 1. For respiratory distress and hypoxia we will move the patient into an ICU status continuous monitoring, oxygen has been increased as needed presently on a rebreathing mask. I have talked with respiratory to be able to monitor the O2 saturations and move into BiPAP. I did talk to the patient that if he got so bad that I would need to intubate him what would he want done since he is a full code, he said he would have to talk to his about that before he made any decisions not to be intubated, present CODE STATUS is full. ,EKG examined showing no acute changes. X-ray will be ordered be done approximately 45 minutes after settled into the ICU. Draw ABGs if I feel he needs it and respiratory status continues to deteriorate. No need for an ABG until I settle him on the schedule delivery method that keeps his O2 saturations at least 90. Intubation is a possibility if patient continues to decompensate 2. Hypoglycemia, will check before meals and at bedtime blood sugars, have encouraged snacks to be given. 3. Patient is awake and alert oriented enough that I do feel these understand all my teaching that I have let him know that I am concerned about him and there is a possibility that his O2 saturation could continue to drop, Also noting that the patient continues to receive laxative and is having bowel movements, will continue to monitor electrolytes. 4. Dr. Shepard , updated on patient, will give 1 dose of albumin due to the patient's low albumin levels poor nutrition and the fact that he has had fluid in the abdominal space and having to have a thoracotomy, will do x 1 and reevaluate in the morning if needed again
[2024-05-10 21:55] LABS: Troponin I < 0.01 ng/ml (0.00-0.034)
--- NOTE | 2024-05-10 22:15 | XR_ITS ---
PROCEDURE INFORMATION: Exam: XR Chest Exam date and time: 05/10/2024 9:52 PM Age: 48 years old Clinical indication: Shortness of breath; Prior surgery; Surgery date: 3-7 days post-operative; Surgery type: Thoracentesis; Additional info: Increased oxygen need, had thoracentesis TECHNIQUE: Imaging protocol: Radiologic exam of the chest. Views: 1 view. COMPARISON: CR XR CHEST PORTABLE 05/10/2024 10:17 AM FINDINGS: Lungs: Persistent bibasilar atelectasis or infiltrate [id number]. Left lung aeration is slightly improved. Pleural spaces: Bilateral small pleural effusions. Heart/Mediastinum: Unremarkable. No cardiomegaly. Bones/joints: Unremarkable. IMPRESSION: 1. Slightly improved left lung aeration. Otherwise unchanged exam. 2. No pneumothorax after thoracentesis.
[2024-05-10] MEDS: ALBUMIN HUMAN 25 GM/100 ML BAG IV (23:22)
[2024-05-11] VITALS (24 sets, daily range): BP systolic 76–152; BP diastolic 42–89; PULSE 88–120; RESP 18–30; TEMP 36–36.6; O2SAT 92–100; BMI 27.3
[2024-05-11] MEDS: IPRATROPIUM/ALBUTEROL 3 ML NEB IH ×3 (01:54→13:52)
[2024-05-11] MEDS: POTASSIUM CHLORIDE 20MEQ TAB 40 MEQ PO (02:35)
--- NOTE | 2024-05-11 04:11 | PC.NURSE ---
patient has been very anxious and restless this shift, patient has been hallucinating, talking to people who are not there, reaching for things that are not there. patient has been pulling at oxygen tubing and telemetry leads. patient has become tachypneic several times throughout the shift, DIRECTOR DATABASE is aware. this shift patients o2 requirements have increased from RA to venturi mask at 15L. patient has had multiple incontinent bowel movements this shift requiring full bed changes. patient has hollered out multiple times that he needs to pee , patient has urinated around 500 mls this shift, continues to holler that he needs to pee , Valerio catheter was inserted for accurate Is and Os, patient complaining of pain around insertion site, no urine output, valerio discontinued at this time per DIRECTOR DATABASE for discomfort.
[2024-05-11 04:14] LABS: ABG Base Excess 6.4 mmol/L (-2.4-2.3); ABG HCO3 30.3 mmhg (22.0-26.0); ABG Oxygen Saturation 88 % (90-100); ABG PH 7.46 mmol/L (7.35-7.45); ABG PO2 54.9 mmhg (80-100); ABG TCO2 31.7 mmhg (23-27)
[2024-05-11 04:15] LABS: Allen's Test ACCEPTABLE; Oxygen 30% %; Source Right Radial
[2024-05-11] MEDS: METHYLPREDNISOLONE SOD SUCC 40MG VIAL 40 MG IV (04:27)
--- NOTE | 2024-05-11 04:45 | PC.NURSE ---
RESP CARE NOTE: Pts oxygen requirements increased to 50% venturi mask, due to recent ABG performed revealing continued hypoxia on 30% venturi mask. Pts abdomen is greatly distended, breath sounds reveal fine and course crackles through out the right lung, and diminished breath sounds through out the left lung. Pt has an audible upper airway wheeze, that clears when instructed to cough. He is very agitated and not easily re-directed with his current mentation and orientation. We will continue to monitor patient.
--- NOTE | 2024-05-11 04:55 | P.EN_ITS ---
<Statement entered by Almas Shepard MD - 05/11/24 22:45> I personally examined patient and agree with DIAMOND CLEANER's plan of care. Problem : Patient is confused keeps taking oxygen off, we had placed a Lerma for short period of time but he was also complaining of that so the Lerma has been removed Lerma was giving us clear yellow urine, the patient's abdomen appears to be becoming more distended, O2 saturations were dropping was given 40 of Solu- Medrol and a breathing treatment saturations are back up. Exam: Lungs: Before breathing treatment several crackles wheezing in the upper airway improved after breathing treatment, O2 saturations holding in the 90-100 on rebreather mask. Patient is a belly breather, with retraction around the neck muscles on every breath., This also improved slightly with the breathing treatment Abdomen: Becoming more firm CV: When agitated heart rate will go up to the 130s, when he is relaxed they will drop down below 100, sinus rhythm on the monitor. Noting at times his peripheral vascular disease fairly significant right lower extremity worse than left. When agitated and kind of struggling in the bed the right foot actually becomes bluish. Mentation : Patient has had periods of being sort of somnolent but then is alert and oriented in the past as the shift is gone on his become more confused, agitated pulling at things. Reaching for things that are not there yelling out. Labs: Blood cultures were positive for staph, Plan: At this time went ahead and gave an extra breathing treatment which seems to have helped., Oxygen being adjusted from 4 L nasal up to 50% by mask, due to his agitation I am going to try 0.5 of Ativan IV to see if this will calm him. I have also given Solu-Medrol 40 mg. He will be n.p.o. because we need to rule out that he is not aspirating have told nurses they can give a few ice chips if his mouth is dry. . Due to the positive blood cultures for staph patient is on antibiotics at this time that should cover. There has been no fever. ,Will order another chest x-ray for morning, may need another CT scan of abdomen and lungs may be needed to question whether or not thoracentesis or paracentesis is required 0600: Nursing informed me that the patient is becoming more violent pulling things off constantly will add 1 dose of Zyprexa. To see results this will be able to calm the patient some,
[2024-05-11] MEDS: LORazepam 2MG/ML VIAL 0.5 MG IV (05:05)
[2024-05-11 05:27] LABS: POC Glucose,Bedside 86 (70-110)
[2024-05-11 05:57] LABS: POC Glucose,Bedside 96 (70-110)
[2024-05-11] MEDS: OLANZapine 10 MG VIAL IM (06:00)
--- NOTE | 2024-05-11 06:00 | EXP.DEATH.DS ---
Discharge Sum: Prov Provider Primary care physician: Donna Lui APRN Visit Care Team Role Provider Type Donna Lui APRN Primary Care Provider Referring Jigar Vazquez MD Other Providers Staff Physician Naun Morales MD Other Providers Staff Physician Flor Manzo MD Other Providers Consulting Physician Danis Marshall MD Other Providers Staff Physician WANG Guallpa Other Providers Physician Agricultural Services Director Jeniffer Linder MD Other Providers Consulting Physician Frantz Alfonso MD Other Providers Consulting Physician WANG Orellana Other Providers Physician Agricultural Services Director Tor Bello MD Other Providers Staff Physician Indira Paulson APRN Other Providers Nurse Practitioner Shayla Byrd APRN Other Providers Nurse Practitioner Brandon Orellana MD Emergency Provider ER Physician Almas Shepard MD Admit Provider Staff Physician Attending Provider Consults: 05/10/24 20:39 Consult to Cardiology [CONS] Routine Consulting Provider: Cardiology Reason For Consult: Respiratory distress with oral effusions, need to rule out cardiac causes Consult to Case Management [CONS] Routine Reason For Consult: Patient is in fairly significant distress body is failing may not be able to go home may need long-term care placement if survives or will need home oxygen therapy with home health Consult to Pulmonology [CONS] Routine Consulting Provider: Naun Morales Reason For Consult: Respiratory failure with pleural effusion recently tapped in the emergency room, cirrhosis, long-term history of smoking Discharge Sum: Summary Date and Time Date of admission: 05/10/24 10:36 Additional Data Attending physician: Almas Shepard MD
[2024-05-11] MEDS: ETOMIDATE 40MG/20ML VIAL 120 MG IV (06:33)
[2024-05-11] MEDS: SUCCINYLCHOLINE 20MG/ML 10 ML MDV 30 MG IV (06:34)
--- NOTE | 2024-05-11 06:40 | XR_ITS ---
PROCEDURE INFORMATION: Exam: XR Chest Exam date and time: 05/11/2024 6:43 AM Age: 48 years old Clinical indication: Device placement; Other: Intubation TECHNIQUE: Imaging protocol: Radiologic exam of the chest. Views: 1 view. COMPARISON: CR XR CHEST PORTABLE 05/10/2024 9:52 PM FINDINGS: Tubes, catheters and devices: Endotracheal tube tip at the level of clavicular head. Nasogastric tube in the proximal stomach. Lungs: Diffuse interstitial and alveolar opacities throughout both lung nunn. Pleural spaces: Bilateral pleural effusion. Heart/Mediastinum: Heart size normal. Bones/joints: Unremarkable. IMPRESSION: 1. Endotracheal tube and nasogastric tube in satisfactory position. The nasogastric tube is in the proximal stomach. This could be advanced. 2. Diffuse interstitial and alveolar opacities throughout both lung nunn. Bilateral pleural effusion. Findings have progressed when compared to the prior exam
[2024-05-11] MEDS: propofoL 100 ML 4.9 MG IV (06:45)
--- NOTE | 2024-05-11 06:45 | P.PN_ITS ---
Critical Care Event Note Summary Code activated: No Narrative: This case had a high probability of a clinically significant, sudden, or life threatening deterioration of this patient's condition which required my full and direct attention, intervention and personal management. 48-year-old male was admitted with altered mental status and acute on chronic hypoxic respiratory failure. Overnight patient had precipitous decompensation in mental and respiratory status and is now GCS of 6 with shallow irregular breathing. On my arrival patient satting low 90s on nonrebreather, blood pressure 150s systolic, tachycardia to 120. Patient was intubated by me at bedside with 7.5 ET tube using etomidate and succinylcholine. Patient tolerated the procedure well without complication. Critical care time: 30 - 74 mins [facility] Critical Care Exam Physical Exam Vital signs: Temp Pulse Resp BP Pulse Ox O2 Del Method O2 Flow Rate 97.8 F 120 H 29 H 148/89 H 99 Venturi Mask 15 05/11/24 00:00 05/11/24 04:50 05/11/24 04:00 05/11/24 04:00 05/11/24 04:50 05/11/24 04:50 05/11/24 04:50 FiO2 50 05/11/24 04:50 Constitutional Constitutional: Present severe distress Routine HEENT Exam Head: Present normocephalic and atraumatic Eye: Present PERRL ENT: Present mucous membranes dry Routine Neck Exam Neck: Present supple and full ROM Routine Chest/Breast/Axilla Exam Chest wall: Absent mass Routine Respiratory Exam Respiratory: Present accessory muscle use Comments: Sporadic shallow breaths noted, bilateral breath sounds Routine Cardiovascular Exam Cardiovascular: Present tachycardia Routine Abdominal Exam Abdominal: Present soft and distended Routine Extremities Exam Extremities: Absent cyanosis Routine Skin Exam Skin: Present intact Routine Neurological Exam Comments: GCS 6 [facility] Cardiology Procedures Intubation Time out performed: Yes Sedative: etomidate Mg given: 30 Paralytic: succinylcholine Mg given: 120 Laryngoscope: Ifeanyi (3) ET tube size: 7.5 Tube secured depth (cm): 21 Tube secured location: lips Tube placement confirmation: visualized tube passing through cords, equal breath sounds bilaterally and confirmation by capnometry Patient tolerated procedure: well and no complications
[2024-05-11 06:48] LABS: Basophils % 0.2 % (0.1-2.0); Eosinophils % 0.1 % (0.1-12.0); Hematocrit 39.4 % (42.0-52.0); Hemoglobin 12.5 g/dL (14.1-18.0); Lymphocytes # 0.6 K/mm3 (0.7-4.5); Lymphocytes % 2.8 % (10-50); Mean Corpuscular HGB Conc 31.6 g/dL (31.8-35.4); Mean Corpuscular Hemoglobin 25.3 pg (27.0-31.2); Mean Corpuscular Volume 80.1 fl (80-94); Mean Platelet Volume 7.6 fl (7.4-10.4); Monocytes # 1.1 K/mm3 (0.1-1.0); Monocytes % 5.6 % (1.7-9.3); Neutrophils % 91.3 % (37.0-80.0); Platelet Count 130 K/mm3 (142-424); Red Blood Count 4.92 M/mm3 (4.60-6.20); Red Cell Distribution Width 19.1 % (11.5-17.5); White Blood Count 19.8 K/mm3 (4.8-10.8)
[2024-05-11 06:49] LABS: MANUAL DIFFERENTIAL MANUAL DIFFERENTIAL (MANUAL DIFF)
[2024-05-11 06:55] LABS: Hypochromasia 1+; Lymphocytes % 3 % (10-50); Monocytes % 1 % (2-9); Neutrophils % 96 % (42-76); Ovalocytes 1+; Platelet Estimate Slight Decrease; Total Cells Counted 100
[2024-05-11 06:57] LABS: Lactic Acid 2.7 mmol/L (0.7-2.1)
[2024-05-11 07:01] LABS: Albumin Level 2.3 g/dl (3.5-5.0); Chloride 100 mmol/L (98-107); Potassium 3.9 mmoL/L (3.5-5.1); Sodium 136 mmol/L (136-145)
[2024-05-11 07:04] LABS: Alanine Aminotransferase 53 U/L (12-78); Albumin/Globulin Ratio 0.6 (1.1-1.8); Alkaline Phosphatase 252 U/L (38-126); Anion Gap 7.9 mEq/L (5-15); Aspartate Amino Transferase 129 U/L (17-59); Bilirubin,Total 3.1 mg/dl (0.2-1.3); Blood Urea Nitrogen 13 mg/dl (9-20); Calcium 7.5 mg/dl (8.4-10.2); Carbon Dioxide 32 mmol/L (22.0-30.0); Creatinine Clearance Estimated 178 mL/min (50-200); Estimated Glomerular Filt Rate 145 ml/min (>60); GFR (African American) 176 ML/MIN (>60); Glucose 97 mg/dl (74-100); Magnesium 2.7 mg/dl (1.6-2.3); Phosphorous 4.6 mg/dl (2.5-4.5); Total Protein,Serum 6.3 g/dl (6.3-8.2)
--- NOTE | 2024-05-11 07:06 | P.EN_ITS ---
<Statement entered by Almas Shepard MD - 05/11/24 22:45> I personally examined patient and agree with PATIENT OBSERVATION ASSISTANT's plan of care. problem: Patient is becoming more combative suddenly was really having trouble being able to get any air and. Starting to gas, was pulling at everything hitting at the nurses. So rapid was called Emergency room physician came up with extra staff and decision to intubate was made Exam . Honoring the room to tell that the patient was in severe distress struggling to breathe.. He was moving some air but with great difficulty, mentally was not alert and oriented eyes were open but not in touch with anything around himself., Skin was garcia ashen to the face, O2 sat was difficult as it was not picking up from the forehead any longer., Heart rate into the 130s respiratory rate above 30. Plan: Rapid response team arrived emergency room physician and then intubated the patient after proper use of sedating medication. , , Tube was placed, auscultation done color change done x-ray done. .ET tube in proper placement at this time patient placed up on ventilator settings. Patient is now sedated, oxygen saturations were 98 respiratory rate 15 , heart rate down to 103. Will order ABG and readjust ventilator as needed. Have contacted , by phone, orders received for Bumex and albumin. I did call the at her home Ms. Akbar. Gave her an update of what was happening, she expressed understanding and that she would come to the hospital. Examination of chest x-ray ET tube in proper location was difficult to visualize due to the amount of fluid in the lung, left lung 80% with baltazar out. Compared to be in very open on previous x-ray, Right lung is also worse.. Edema versus adult respiratory distress syndrome. Waiting for official read. ,
[2024-05-11 07:14] LABS: ABG HCO3 30.6 mmhg (22.0-26.0); ABG Oxygen Saturation 95 % (90-100); ABG PH 7.36 mmol/L (7.35-7.45); ABG PO2 87.6 mmhg (80-100); ABG TCO2 32.3 mmhg (23-27)
[2024-05-11] MEDS: BUMETANIDE 1MG/4ML VIAL 2 MG IV (07:30)
--- NOTE | 2024-05-11 07:31 | PC.NURSE ---
patient respiratory status continued to deteriorate throughout the shift, patient became very anxious and restless, LIFT DRIVER was notified and ativan was given without satisfactory results, patient became more restless and combative, olanzapine was then given per LIFT DRIVER without satisfactory results. patient then began to have difficulty breathing, LIFT DRIVER was called to bedside and the decision was made to call rapid response. 0624: rapid response was called and ER doctor was notified and asked to come to bedside for intubation Vitals: BP-152/84, HR-127, O2- 91% on venti at 15L and 30%, GCS:6 0625: RT came to bedside 0627: ER doctor came to bedside 0628: HR-115, O2-91% on venti at 15L and 30% 0633: 18 guage IV inserted in left forearm vitals: BP-152/84, HR-115, O2- 94% 0633: 30 mg of etomidate administered 0634: 120 mg of succinylcholine administered 0635: 7.5 F Et tube in place, 21 at the teeth, positive lung sounds, color change on Co2 detector 0636: BP: 115/72, HR-106, O2-100% 0636: propofol drip started at 5mcg/kg/min 0640: 18F OG inserted, 50 at the teeth
[2024-05-11 07:34] LABS: Prothrombin Time 22.8 seconds (10.1-12.5)
[2024-05-11] MEDS: ALBUMIN HUMAN 25 GM/100 ML BAG IV ×2 (07:47→12:17)
[2024-05-11 07:51] LABS: Allen's Test ACCEPTABLE; Oxygen 50 %; PEEP 5; Source Right Radial; Tidal Volume 415; Vent Rate 18
[2024-05-11 07:52] LABS: Lactate Arterial 2.7 mmol/L (0.4-2.0)
--- NOTE | 2024-05-11 08:05 | PC.NURSE ---
RESP CARE NOTE: Pt Vt increased to 420ml and PEEP to [address] Morales verbal order. ET tube also repositioned to 22 @ the lip. Will continue to monitor.
[2024-05-11] MEDS: FENTANYL CITRATE/PF 1,000 MCG in 0.9 % SODIUM CHLORIDE 80 ML 1.25 MCG IV (08:07)
--- NOTE | 2024-05-11 08:08 | PC.NURSE ---
RESP CARE NOTE: Pt sputum specimen sent to lab at 0650.
[2024-05-11 08:11] LABS: NT Pro Brain Natriuretic Pep. 404 pg/mL (0-125)
[2024-05-11] MEDS: BUMETANIDE 10 MG in 0.9 % SODIUM CHLORIDE 60 ML IV (08:22)
--- NOTE | 2024-05-11 08:41 | P.CONPHA_ITS ---
Pharmacy Consult Date: 05/11/24 Time: 08:42 Referring provider: DR. SELF Reason for Consult:: VANCOMYCIN DOSING Allergies Allergy/AdvReac Type Severity Reaction Status Date / Time No Known Allergies Allergy Verified 05/10/24 08:41 Home Medications ?Medication ?Instructions ?Recorded ?Confirmed ?Type lactulose 10 gram/15 mL oral 45 ml PO TID 05/10/24 05/10/24 History solution pantoprazole 40 mg tablet,delayed 40 mg PO DAILY 05/10/24 05/10/24 History release potassium chloride 20 mEq 20 meq PO DAILY 05/10/24 05/10/24 History tablet,extended release spironolactone 50 mg tablet 50 mg PO DAILY 05/10/24 05/10/24 History torsemide 20 mg tablet 40 mg PO DAILY 05/10/24 05/10/24 History New Prescriptions to Start Prescriptions: Height: 1.73 m Weight: 81.647 kg Laboratory Results:: Laboratory Results - last 24 hr 05/10/24 08:32: WBC 12.9 H, RBC 4.54 L, Hgb 11.7 L, Hct 35.3 L, MCV 77.7 L, MCH 25.8 L, MCHC 33.1, RDW 19.1 H, Plt Count 82 L, MPV 7.2 L, Neut % (Auto) 90.4 H, Lymph % (Auto) 4.3 L, Republic % (Auto) 4.9, Eos % (Auto) 0.3, Baso % (Auto) 0.2, Neut # (Auto) 11.6 H, Lymph # (Auto) 0.5 L, [place] # (Auto) 0.6, Eos # (Auto) 0.0, Baso # (Auto) 0.0, Total Counted 100, Neutrophils % (Manual) 95 H, Lymphocytes % (Manual) 3 L, Monocytes % (Manual) 2, Platelet Estimate Moderate decrease, Anisocytosis 1+, Microcytosis 1+, Ovalocytes 1+, PT 18.7 H, INR 1.77 H, Sodium 133 L, Potassium 2.9 L*, Chloride 97 L, Carbon Dioxide 34 H, Anion Gap 4.9 L, BUN 8 L, Creatinine 0.60 L, Estimated Creat Clear 173, Estimated GFR 145, Est GFR ( Amer) 176, Glucose 85, Calcium 6.9 L, Total Bilirubin 2.3 H, AST 85 H, ALT 52, Alkaline Phosphatase 279 H, Total Protein 6.3, Albumin 2.2 L, Globulin 4.1 H, Albumin/Globulin Ratio 0.5 L, Lipase 77, Plasma/Serum Alcohol < 10 05/10/24 08:37: VBG pH 7.44 H, VBG pCO2 49.3, VBG pO2 55.3 H, VBG HCO3 32.9 H, VBG Total CO2 34.4 H, VBG O2 Saturation 88.5 H, VBG Base Excess 8.8 H, VBG Lactic Acid 2.1 H 05/10/24 09:55: Fluid Source Pleural fluid, Fluid Volume 55, Fluid Appearance Clear, Fluid RBC (Auto) < 10, Fld Tot Nucleated Cell 1103, Fld Polynuclear WBCs % 68, Fld Mononuclear WBCs % 32 05/10/24 12:50: Urine Color Yellow, Urine Appearance Clear, Urine pH 7.0, Ur Specific [place] 1.010, Urine Protein Negative, Urine Glucose (UA) Negative, Urine Ketones Negative, Urine Blood Trace-i, Urine Nitrate Negative, Urine Bilirubin Negative, Urine Urobilinogen 0.2, Ur Leukocyte Esterase Negative, Urine RBC Occasional, Urine WBC None, Ur Squamous Epith Cells Occasional, Urine Bacteria Trace, Urine Opiates Screen Negative, Urine Methadone Screen Positive H , Ur Barbituates Screen Negative, Ur Phencyclidine Scrn Negative, Ur Amphetamines Screen Negative, U Benzodiazepines Scrn Negative, Urine Cocaine Screen Negative, U Marijuana (THC) Screen Negative 05/10/24 13:15: Lactate 2.2 H 05/10/24 13:45: Ammonia 11 05/10/24 15:27: Lactate 1.7 05/10/24 17:45: Sodium 135 L, Potassium 2.8 L*, Chloride 98, Carbon Dioxide 33 H , Anion Gap 6.8, BUN 9, Creatinine 0.60 L, Estimated Creat Clear 172, Estimated GFR 145, Est GFR ( Amer) 176, Glucose 56 L D, Calcium 7.1 L, Magnesium 1.4 L 05/10/24 21:15: Troponin I < 0.01 05/10/24 21:17: POC Glucose 96 05/11/24 04:00: Specimen Source Right radial, O2 % 30%, ABG pH 7.46 H, ABG pCO2 44.0, ABG pO2 54.9 L, ABG HCO3 30.3 H, ABG Total CO2 31.7 H, ABG O2 Saturation 88 L, ABG Base Excess 6.4 H, Quoc Test Acceptable 05/11/24 05:17: POC Glucose 86 05/11/24 06:45: WBC 19.8 H D, RBC 4.92, Hgb 12.5 L, Hct 39.4 L, MCV 80.1, MCH 25.3 L, MCHC 31.6 L, RDW 19.1 H, Plt Count 130 L D, MPV 7.6, Neut % (Auto) 91.3 H, Lymph % (Auto) 2.8 L, Republic % (Auto) 5.6, Eos % (Auto) 0.1, Baso % (Auto) 0.2, Neut # (Auto) 18.0 H, Lymph # (Auto) 0.6 L, [place] # (Auto) 1.1 H, Eos # (Auto) 0.0, Baso # (Auto) 0.0, Total Counted 100, Neutrophils % (Manual) 96 H, Lymphocytes % (Manual) 3 L, Monocytes % (Manual) 1 L, Platelet Estimate Slight decrease, Hypochromasia 1+, Ovalocytes 1+, Sodium 136, Potassium 3.9 D, Chloride 100, Carbon Dioxide 32 H, Anion Gap 7.9, BUN 13 D, Creatinine 0.60 L, Estimated Creat Clear 178, Estimated GFR 145, Est GFR ( Amer) 176, Glucose 97 D, Lactate 2.7 H, Calcium 7.5 L, Phosphorus 4.6 H, Magnesium 2.7 H D , Total Bilirubin 3.1 H, AST 129 H D, ALT 53, Alkaline Phosphatase 252 H, Total Protein 6.3, Albumin 2.3 L, Globulin 4.0 H, Albumin/Globulin Ratio 0.6 L 05/11/24 06:50: NT-Pro-B Natriuret Pep 404 H 05/11/24 07:11: Specimen Source Right radial, O2 % 50, ABG pH 7.36, ABG pCO2 56.0 H, ABG pO2 87.6, ABG HCO3 30.6 H, ABG Total CO2 32.3 H, ABG O2 Saturation 95, ABG Base Excess 5.0 H, Quoc Test Acceptable, ABG Lactate 2.7 H, Vent Rate 18, Tidal Volume 415, PEEP 5 05/11/24 07:15: PT 22.8 H, INR 2.20 H Assessment and Plan Assessment and plan all Dx Assessment and Plan for all problems:: Pharmacokinetic dosing service Objective: Patient: Floor: Age: 48 yo Serum creatinine: 0.6 mg/dL Height: 68.1 Inches Weight (kg): 81.6 Assessment: IBW (kg): 68.63 Dosing wt(kg): 81.6 Estimated Creatinine clearance (ml/min): 130 Clearance limited to 130 ml/min to reduce risk of overdosing. CRCL method: Cockcroft and Gault using ibw(default). Drug selected: Vancomycin Loading dose (mg): 0 Vd (liters): 65.3 (factor used: 0.8 L/kg) Louie (hr-1): 0.112 Half life (hrs): 6.19 Recommended dose: 1250 mg Interval: 8 hrs Infusion time (hrs): 2.0 Predicted peak (mcg/mL): 29.0 Predicted trough (mcg/mL): 14.81 Total body weight is being used for vancomycin dosing. Recommendations: Give Vancomycin 1250 mg q 8 hrs with an expected Cpeak of 29.0 mcg/ml and an expected Ctrough of 14.81 mcg/ml ----Vanco only - ignore for aminoglycosides----- CLvanco= 7.31 L/hr AUC 0-24 /CHARO Data: CHARO 0.5 mcg/mL: AUC/CHARO: 1026.0 CHARO 1.0 mcg/mL: AUC/CHARO: 513.0 --------- CHARO 1.5 mcg/mL: AUC/CHARO: 342.0 CHARO 2.0 mcg/mL: AUC/CHARO: 256.5
[2024-05-11] MEDS: METRONIDAZ/SOD CHL 500 MG/100 ML PIGGYBACK 100 MG IV ×2 (09:39→16:53)
[2024-05-11 10:45] LABS: Reflex Lactic Add Lactic Reflex
--- NOTE | 2024-05-11 11:38 | XR_ITS ---
PROCEDURE INFORMATION: Exam: XR Chest Exam date and time: 05/11/2024 12:04 PM Age: 48 years old Clinical indication: Device placement; Other: Central line placement TECHNIQUE: Imaging protocol: Radiologic exam of the chest. Views: 1 view. COMPARISON: CR XR CHEST PORTABLE 05/11/2024 6:43 AM FINDINGS: Tubes, catheters and devices: Tip of the left internal jugular catheter projects over the mid SVC. Remainder life-support lines and tubes unchanged. No pneumothorax. Lungs: See Pleural spaces finding. Pleural spaces: Small left and moderate right pleural effusion unchanged. Diffuse heterogeneous opacities in the bilateral lungs unchanged. Heart/Mediastinum: Partially obscured and incompletely evaluated. Bones/joints: Unremarkable. IMPRESSION: Tip of the left internal jugular catheter projects over the mid SVC. Remainder life-support lines and tubes unchanged. No pneumothorax.
[2024-05-11] MEDS: CEFEPIME HCL 2 GM in 0.9 % SODIUM CHLORIDE 100 ML IV (12:17)
[2024-05-11] MEDS: propofoL 100 ML 9.8 MG IV (12:32)
[2024-05-11] MEDS: LACTULOSE 20GM/30ML UDC 20 GM PO (12:35)
[2024-05-11] MEDS: POTASSIUM CHLORIDE 20MEQ/15ML UDC 20 MEQ FEED TUBE (12:35)
[2024-05-11] MEDS: FAMOTIDINE 20MG/2ML VIAL 20 MG IV (12:35)
[2024-05-11] MEDS: SODIUM CHLORIDE 0.9% 10ML VIAL 8 ML IV (12:35)
[2024-05-11] MEDS: SPIRONOLACTONE 25MG TABLET 50 MG PO (12:37)
[2024-05-11] MEDS: NOREPINEPHRINE BITARTRATE/D5W 8 MG/250 ML PLAST..BAG 11.25 MG IV (12:59)
[2024-05-11] MEDS: VANCOMYCIN/WATER FOR INJ (PEG) 1.25 GM/250 ML PIGGYBACK IV (13:15)
[2024-05-11 14:46] LABS: POC Glucose,Bedside 124 (70-110)
[2024-05-11 14:47] LABS: Lactic Acid Follow Up (RFLX 1) 1.7 mmol/L (0.7-2.1)
[2024-05-11 15:13] LABS: Albumin Level 2.5 g/dl (3.5-5.0); Chloride 100 mmol/L (98-107); Potassium 3.9 mmoL/L (3.5-5.1); Sodium 136 mmol/L (136-145)
[2024-05-11 15:16] LABS: Alanine Aminotransferase 34 U/L (12-78); Albumin/Globulin Ratio 0.8 (1.1-1.8); Alkaline Phosphatase 180 U/L (38-126); Anion Gap 7.9 mEq/L (5-15); Aspartate Amino Transferase 70 U/L (17-59); Bilirubin,Total 3.7 mg/dl (0.2-1.3); Blood Urea Nitrogen 19 mg/dl (9-20); Calcium 7.8 mg/dl (8.4-10.2); Carbon Dioxide 32 mmol/L (22.0-30.0); Creatinine Clearance Estimated 178 mL/min (50-200); Estimated Glomerular Filt Rate 145 ml/min (>60); GFR (African American) 176 ML/MIN (>60); Globulin 3.3 g/dL (1.3-3.2); Glucose 120 mg/dl (74-100); Total Protein,Serum 5.8 g/dl (6.3-8.2)
--- NOTE | 2024-05-11 16:36 | P.DS_ITS ---
General Admission date:: 05/10/24 HPI HPI HPI: Ruslan Haley is a 48-year-old male with a medical history significant for cirrhosis, hepatitis C, hepatitis B, hypertension, opioid use disorder on methadone who presents with worsening confusion for the past few days and hypoxia. Most history was obtained from patient's as patient is currently somewhat encephalopathic. states patient has a history of cirrhosis, never has really been a alcohol drinker, however has had hepatitis which apparently has not been treated as patient's family thought it would resolve on its own. Per , patient has been more confused over the past few days and had significant volume overload this past week. They followed up with her PCP who prescribed torsemide, in addition to patient's home Lasix and spironolactone for volume overload. This seemed to have resolved fluid overload. However, patient's confusion has not resolved. EMS states patient's home oxygen was in the 70s. Tachycardic up to 129. Currently requiring 3 L nasal cannula. Workup in the ED significant for WBC 12.9, platelet 82, potassium 2.9, total bili 2.3, AST 85, ALP 79. ED provider did a diagnostic paracentesis which revealed polynuclear WBCs 750. UDS positive for methadone. Case discussed with ED provider and decision was made to admit patient for sepsis secondary to SBP, and decompensated cirrhosis. Hospital Course Hospital Course Hospital Course: Ruslan Haley is a 48-year-old male with a medical history significant for cirrhosis, hepatitis C, hepatitis B, hypertension, opioid use disorder on methadone who presents with worsening confusion for the past few days and hypoxia. Most history was obtained from patient's as patient is currently somewhat encephalopathic. states patient has a history of cirrhosis, never has really been a alcohol drinker, however has had hepatitis which apparently has not been treated as patient's family thought it would resolve on its own. Per , patient has been more confused over the past few days and had significant volume overload this past week. They followed up with her PCP who prescribed torsemide, in addition to patient's home Lasix and spironolactone for volume overload. This seemed to have resolved fluid overload. However, patient's confusion has not resolved. EMS states patient's home oxygen was in the 70s. Tachycardic up to 129. Currently requiring 3 L nasal cannula. Workup in the ED significant for WBC 12.9, platelet 82, potassium 2.9, total bili 2.3, AST 85, ALP 79. ED provider did a diagnostic paracentesis which revealed polynuclear WBCs 750. UDS positive for methadone. Case discussed with ED provider and decision was made to admit patient for sepsis secondary to SBP, and decompensated cirrhosis. #Septic shock #Spontaneous bacterial peritonitis #Decompensated cirrhosis #Hepatic encephalopathy #Acute hypoxic respiratory failure #ARDS #Large bilateral pleural effusions #Pulmonary edema #Possible pneumonia #History of esophageal varices ? On admission, patient intermittently confused, disoriented, hyperreflexive hig hly suggesting hepatic encephalopathy in the setting of decompensated cirrhosis. No focal neurological signs. CT head did not show acute findings. ? CT abdomen/pelvis revealed moderate abdominal and pelvic ascites, and esophageal varices. Also showed bowel wall thickening of the ascending and descending colon, infectious versus accentuation from ascites. ? MELD sodium score 18, 6% estimated 3-month mortality. Apparently follows with GI, but has not in quite some time. says no alcohol use for many years. ? WBC 19.8, Hgb 12.5, platelet 130, PT/INR 22.8/2.2, creatinine 0.60, BUN 19, total bili 3.7, AST/ALT 70/34, albumin 2.2, UDS positive for methadone. ? Bilateral lower extremity pitting edema 2+ to above knees, with superimposed chronic venous stasis changes. CTA chest shows large bilateral pleural effusions, right larger than left. Patchy groundglass densities likely represent pulmonary edema versus pneumonia. ? Diagnostic paracentesis revealed polynuclear WBCs 750. There is moderate abdominal fluid wave, tenderness to palpation without peritoneal signs. ? Initial WBC 12.9 with tachycardia up to 127. Ammonia normal at 11. ? Per , patient has been compliant with Lasix 40 mg, spironolactone 50 mg at home. She states patient has been hospitalized several times in the past for fluid overload in the setting of cirrhosis, but apparently has never been diagnosed with SBP or intubated before. She states he had a therapeutic paracentesis about a week ago with 2 L output. ? Overnight, patient developed ARDS requiring increasing oxygen requirements. Decision was made to intubate patient. Currently on propofol, fentanyl for sedation. ? IV cefepime, Flagyl. Vancomycin started today to broaden coverage as WBC increased from 12.9-19.8 today. Currently on Levophed at 4 mcg/h. Required up to 10 mcg/h. ? Given IV albumin 25 g last night, additional 25 g x 2 today while diuresing with Bumex. ? IV Bumex 1 mg twice daily, spironolactone 50 mg. Patient has had about 1 L output in the past 24 hours. ? Lactulose 20 mg twice daily with several bowel movements since admission. ? Initially started Coreg 6.25 mg twice daily for history of esophageal varices and tachycardia up to 130, but discontinued after patient became hypotensive in the setting of septic shock. ? Blood cultures revealed Staph epidermidis, likely contamination. ? Given worsening septic shock in the setting of SBP and decompensated cirrhosis with large fluid overload only minimally responsive to diuresis and albumin, and lack of capability to perform therapeutic paracentesis for source control of his SBP and septic shock in addition to not having transplant medicine at this facility, decision was made to transfer patient to higher level of care. Dr. Li with [facility] graciously accepted patient. Patient will be airlifted to [facility]. #History of hepatitis C, hepatitis B ? bPresumably has not been treated per . ? Follow-up hepatitis panel. Will need quantitative testing if these are positive. #History of opioid use disorder ? Takes methadone 75 mg daily. Prescribed by [facility]. History of heroin use disorder. states he has not been using illicit opioids for the past 8 years. ? Pending verification by pharmacy. Exam Data for Last 24 hours Vital signs and Labs for Last 24 Hours: Temp Pulse Resp BP Pulse Ox O2 Del Method O2 Flow Rate 97.4 F L 95 H 18 116/66 97 Mechanical Ventilation 15 05/11/24 16:00 05/11/24 15:00 05/11/24 15:00 05/11/24 15:00 05/11/24 15:00 05/11/24 15:00 05/11/24 06:00 FiO2 50 05/11/24 14:15 Laboratory Results - last 24 hr 05/10/24 17:45: Sodium 135 L, Potassium 2.8 L*, Chloride 98, Carbon Dioxide 33 H , Anion Gap 6.8, BUN 9, Creatinine 0.60 L, Estimated Creat Clear 172, Estimated GFR 145, Est GFR ( Amer) 176, Glucose 56 L D, Calcium 7.1 L, Magnesium 1.4 L 05/10/24 21:15: Troponin I < 0.01 05/10/24 21:17: POC Glucose 96 05/11/24 04:00: Specimen Source Right radial, O2 % 30%, ABG pH 7.46 H, ABG pCO2 44.0, ABG pO2 54.9 L, ABG HCO3 30.3 H, ABG Total CO2 31.7 H, ABG O2 Saturation 88 L, ABG Base Excess 6.4 H, Quoc Test Acceptable 05/11/24 05:17: POC Glucose 86 05/11/24 06:45: WBC 19.8 H D, RBC 4.92, Hgb 12.5 L, Hct 39.4 L, MCV 80.1, MCH 25.3 L, MCHC 31.6 L, RDW 19.1 H, Plt Count 130 L D, MPV 7.6, Neut % (Auto) 91.3 H, Lymph % (Auto) 2.8 L, [place] % (Auto) 5.6, Eos % (Auto) 0.1, Baso % (Auto) 0.2, Neut # (Auto) 18.0 H, Lymph # (Auto) 0.6 L, [place] # (Auto) 1.1 H, Eos # (Auto) 0.0, Baso # (Auto) 0.0, Total Counted 100, Neutrophils % (Manual) 96 H, Lymphocytes % (Manual) 3 L, Monocytes % (Manual) 1 L, Platelet Estimate Slight decrease, Hypochromasia 1+, Ovalocytes 1+, Sodium 136, Potassium 3.9 D, Chloride 100, Carbon Dioxide 32 H, Anion Gap 7.9, BUN 13 D, Creatinine 0.60 L, Estimated Creat Clear 178, Estimated GFR 145, Est GFR ( Amer) 176, Glucose 97 D, Lactate 2.7 H, Calcium 7.5 L, Phosphorus 4.6 H, Magnesium 2.7 H D , Total Bilirubin 3.1 H, AST 129 H D, ALT 53, Alkaline Phosphatase 252 H, Total Protein 6.3, Albumin 2.3 L, Globulin 4.0 H, Albumin/Globulin Ratio 0.6 L 05/11/24 06:50: NT-Pro-B Natriuret Pep 404 H 05/11/24 07:11: Specimen Source Right radial, O2 % 50, ABG pH 7.36, ABG pCO2 56.0 H, ABG pO2 87.6, ABG HCO3 30.6 H, ABG Total CO2 32.3 H, ABG O2 Saturation 95, ABG Base Excess 5.0 H, Quoc Test Acceptable, ABG Lactate 2.7 H, Vent Rate 18, Tidal Volume 415, PEEP 5 05/11/24 07:15: PT 22.8 H, INR 2.20 H 05/11/24 14:15: Sodium 136, Potassium 3.9, Chloride 100, Carbon Dioxide 32 H, Anion Gap 7.9, BUN 19 D, Creatinine 0.60 L, Estimated Creat Clear 178, Estimated GFR 145, Est GFR ( Amer) 176, Glucose 120 H D, Lactate 1.7, Calcium 7.8 L, Total Bilirubin 3.7 H, AST 70 H D, ALT 34 D, Alkaline Phosphatase 180 H, Total Protein 5.8 L, Albumin 2.5 L, Globulin 3.3 H, Albumin/Globulin Ratio 0.8 L 05/11/24 14:37: POC Glucose 124 H I & O for Last 24 hours: Intake & Output 05/08/24 05/09/24 05/10/24 05/11/24 23:59 23:59 23:59 23:59 Intake Total 708 / 1248 1380.821 / 1380.821 Output Total 1500 / 1500 465 / 465 Balance -792 / -252 915.821 / 915.821 Weight 79.152 kg 81.647 kg Microbiology Reports for the Last 24 Hours: Microbiology 05/11/24 06:40 Sputum - Endotracheal Tube Aspirate Gram Stain - Final 05/10/24 09:55 Pleural Fluid Gram Stain - Final 05/10/24 09:55 Pleural Fluid Body Fluid Culture - Preliminary NO GROWTH AFTER 24 HOURS 05/10/24 08:40 Blood Blood Culture - Preliminary 05/10/24 08:32 Blood Blood Culture - Final Constitutional Comments: Intubated and sedated. *Routine HEENT Exam Head: Present normocephalic Eye: Present EOMI and PERRL ENT: Present mucous membranes moist *Routine Neck Exam Neck: Present supple; Absent lymphadenopathy *Routine Respiratory Exam Respiratory: Present CTA bilaterally Comments: Decreased breath sounds at bases bilaterally, and diminished air movement throughout lung nunn. *Routine Cardiovascular Exam Cardiovascular: Present RRR *Routine Abdominal Exam Abdominal: Present soft, normoactive bowel sounds and distended; Absent tenderness Comments: Distended abdomen with moderate fluid wave. Initially had no peritoneal signs. *Routine Extremities Exam Extremities: Absent cyanosis, clubbing or edema Comments: Bilateral lower extremity pitting edema 2+ with superimposed chronic venous stasis changes and malleolus ulcers. *Routine Skin Exam Skin: Present warm; Absent rash Results Data Completed and Pending Labs on day of discharge: Labs from last 24 hours 05/11/24 05/11/24 05/11/24 14:37 14:15 07:15 WBC RBC Hgb Hct MCV MCH MCHC RDW Plt Count MPV Neut % (Auto) Lymph % (Auto) [place] % (Auto) Eos % (Auto) Baso % (Auto) Neut # (Auto) Lymph # (Auto) [place] # (Auto) Eos # (Auto) Baso # (Auto) Total Counted Neutrophils % (Manual) Lymphocytes % (Manual) Monocytes % (Manual) Platelet Estimate Hypochromasia Ovalocytes PT 22.8 H INR 2.20 H Specimen Source O2 % ABG pH ABG pCO2 ABG pO2 ABG HCO3 ABG Total CO2 ABG O2 Saturation ABG Base Excess Quoc Test ABG Lactate Vent Rate Tidal Volume PEEP Sodium 136 Potassium 3.9 Chloride 100 Carbon Dioxide 32 H Anion Gap 7.9 BUN 19 D Creatinine 0.60 L Estimated Creat Clear 178 Estimated GFR 145 Est GFR ( Amer) 176 Glucose 120 H D POC Glucose 124 H Lactate 1.7 Calcium 7.8 L Phosphorus Magnesium Total Bilirubin 3.7 H AST 70 H D ALT 34 D Alkaline Phosphatase 180 H Troponin I NT-Pro-B Natriuret Pep Total Protein 5.8 L Albumin 2.5 L Globulin 3.3 H Albumin/Globulin Ratio 0.8 L 05/11/24 05/11/24 05/11/24 07:11 06:50 06:45 WBC 19.8 H D RBC 4.92 Hgb 12.5 L Hct 39.4 L MCV 80.1 MCH 25.3 L MCHC 31.6 L RDW 19.1 H Plt Count 130 L D MPV 7.6 Neut % (Auto) 91.3 H Lymph % (Auto) 2.8 L [place] % (Auto) 5.6 Eos % (Auto) 0.1 Baso % (Auto) 0.2 Neut # (Auto) 18.0 H Lymph # (Auto) 0.6 L [place] # (Auto) 1.1 H Eos # (Auto) 0.0 Baso # (Auto) 0.0 Total Counted 100 Neutrophils % (Manual) 96 H Lymphocytes % (Manual) 3 L Monocytes % (Manual) 1 L Platelet Estimate Slight decrease Hypochromasia 1+ Ovalocytes 1+ PT INR Specimen Source Right radial O2 % 50 ABG pH 7.36 ABG pCO2 56.0 H ABG pO2 87.6 ABG HCO3 30.6 H ABG Total CO2 32.3 H ABG O2 Saturation 95 ABG Base Excess 5.0 H Quoc Test Acceptable ABG Lactate 2.7 H Vent Rate 18 Tidal Volume 415 PEEP 5 Sodium 136 Potassium 3.9 D Chloride 100 Carbon Dioxide 32 H Anion Gap 7.9 BUN 13 D Creatinine 0.60 L Estimated Creat Clear 178 Estimated GFR 145 Est GFR ( Amer) 176 Glucose 97 D POC Glucose Lactate 2.7 H Calcium 7.5 L Phosphorus 4.6 H Magnesium 2.7 H D Total Bilirubin 3.1 H AST 129 H D ALT 53 Alkaline Phosphatase 252 H Troponin I NT-Pro-B Natriuret Pep 404 H Total Protein 6.3 Albumin 2.3 L Globulin 4.0 H Albumin/Globulin Ratio 0.6 L 05/11/24 05/11/24 05/10/24 05:17 04:00 21:17 WBC RBC Hgb Hct MCV MCH MCHC RDW Plt Count MPV Neut % (Auto) Lymph % (Auto) [place] % (Auto) Eos % (Auto) Baso % (Auto) Neut # (Auto) Lymph # (Auto) [place] # (Auto) Eos # (Auto) Baso # (Auto) Total Counted Neutrophils % (Manual) Lymphocytes % (Manual) Monocytes % (Manual) Platelet Estimate Hypochromasia Ovalocytes PT INR Specimen Source Right radial O2 % 30% ABG pH 7.46 H ABG pCO2 44.0 ABG pO2 54.9 L ABG HCO3 30.3 H ABG Total CO2 31.7 H ABG O2 Saturation 88 L ABG Base Excess 6.4 H Quoc Test Acceptable ABG Lactate Vent Rate Tidal Volume PEEP Sodium Potassium Chloride Carbon Dioxide Anion Gap BUN Creatinine Estimated Creat Clear Estimated GFR Est GFR ( Amer) Glucose POC Glucose 86 96 Lactate Calcium Phosphorus Magnesium Total Bilirubin AST ALT Alkaline Phosphatase Troponin I NT-Pro-B Natriuret Pep Total Protein Albumin Globulin Albumin/Globulin Ratio 05/10/24 05/10/24 21:15 17:45 WBC RBC Hgb Hct MCV MCH MCHC RDW Plt Count MPV Neut % (Auto) Lymph % (Auto) [place] % (Auto) Eos % (Auto) Baso % (Auto) Neut # (Auto) Lymph # (Auto) [place] # (Auto) Eos # (Auto) Baso # (Auto) Total Counted Neutrophils % (Manual) Lymphocytes % (Manual) Monocytes % (Manual) Platelet Estimate Hypochromasia Ovalocytes PT INR Specimen Source O2 % ABG pH ABG pCO2 ABG pO2 ABG HCO3 ABG Total CO2 ABG O2 Saturation ABG Base Excess Quoc Test ABG Lactate Vent Rate Tidal Volume PEEP Sodium 135 L Potassium 2.8 L* Chloride 98 Carbon Dioxide 33 H Anion Gap 6.8 BUN 9 Creatinine 0.60 L Estimated Creat Clear 172 Estimated GFR 145 Est GFR ( Amer) 176 Glucose 56 L D POC Glucose Lactate Calcium 7.1 L Phosphorus Magnesium 1.4 L Total Bilirubin AST ALT Alkaline Phosphatase Troponin I < 0.01 NT-Pro-B Natriuret Pep Total Protein Albumin Globulin Albumin/Globulin Ratio Preliminary micro results at discharge 05/10/24 09:55 Body Fluid Culture - Preliminary Pleural Fluid NO GROWTH AFTER 24 HOURS 05/10/24 08:40 Blood Culture - Preliminary Blood DS: Diagnosis Discharge Diagnosis (1) Septic shock: Status: Acute Code(s): A41.9 - Sepsis, unspecified organism; R65.21 - Severe sepsis with septic shock (2) SBP (spontaneous bacterial peritonitis): Status: Acute Code(s): K65.2 - Spontaneous bacterial peritonitis (3) Decompensated cirrhosis: Status: Acute Code(s): K72.90 - Hepatic failure, unspecified without coma; K74.60 - Unspecified cirrhosis of liver (4) Acute and chronic respiratory failure with hypoxia: Status: Acute Code(s): J96.21 - Acute and chronic respiratory failure with hypoxia (5) Cirrhosis: Status: Acute Code(s): K74.60 - Unspecified cirrhosis of liver (6) ARDS (adult respiratory distress syndrome): Status: Acute Code(s): J80 - Acute respiratory distress syndrome (7) Bilateral pleural effusion: Status: Acute Code(s): J90 - Pleural effusion, not elsewhere classified (8) Hepatic encephalopathy: Status: Acute Code(s): K76.82 - Hepatic encephalopathy (9) Pulmonary edema: Status: Acute Code(s): J81.1 - Chronic pulmonary edema (10) History of hepatitis: Status: Acute Code(s): Z86.19 - Personal history of other infectious and parasitic diseases Meds Home Medications and Allergies Home Medications ?Medication ?Instructions ?Recorded ?Confirmed ?Type lactulose 10 gram/15 mL oral 45 ml PO TID 05/10/24 05/10/24 History solution pantoprazole 40 mg tablet,delayed 40 mg PO DAILY 05/10/24 05/10/24 History release potassium chloride 20 mEq 20 meq PO DAILY 05/10/24 05/10/24 History tablet,extended release spironolactone 50 mg tablet 50 mg PO DAILY 05/10/24 05/10/24 History torsemide 20 mg tablet 40 mg PO DAILY 05/10/24 05/10/24 History New Prescriptions to Start Prescriptions: Allergies Allergy/AdvReac Type Severity Reaction Status Date / Time No Known Allergies Allergy Verified 05/10/24 08:41 Discharge Plan Disposition Patient Disposition: [facility] Discharge Order Discharge Orders: Discharge Order (Routine); Ordered 05/11/24 Ordered By: Almas Shepard Follow up Plan Prescriptions/Medication Reconciliation: No Action torsemide 20 mg tablet 40 mg PO DAILY Patient Comments: TAKE 2 TABLETS ORALLY ONCE DAILY pantoprazole 40 mg tablet,delayed release (DR/EC) 40 mg PO DAILY Patient Comments: TAKE 1 TABLET BY MOUTH EVERY DAY spironolactone 50 mg tablet 50 mg PO DAILY Patient Comments: TAKE 1 TABLET ORALLY ONCE DAILY lactulose 10 gram/15 mL solution 45 ml PO TID Patient Comments: TAKE 45 ML BY MOUTH 3 TIMES DAILY. INDICATIONS: CIRRHOSIS potassium chloride 20 mEq tablet extended release 20 meq PO DAILY Patient Comments: TAKE 1 TABLET BY MOUTH EVERY DAY Problem Reconciliation Problems Reviewed?: Yes Patient Discharge Instructions Stand Alone Forms: Transfer Record Patient Instructions: DI for Cirrhosis Print Language: Amharic Providers Primary Care Provider: Donna Lui Admit Provider: Almas Shepard Attending Provider: Almas Shepard
[2024-05-11] MEDS: BUMETANIDE 1MG/4ML VIAL 1 MG IV (16:53)
[2024-05-11] MEDS: MULTIVITAMIN TABLET 1 EACH PO (16:53)
[2024-05-11] MEDS: propofoL 100 ML 24.49 MG IV (16:59)
[2024-05-11 23:10] LABS: Glucose, Body Fluid 114 mg/dL (.); LD, Body Fluid 145 IU/L (.); Protein, Body Fluid 0.3 g/dL (.)
--- NOTE | 2024-05-11 23:21 | PC.NURSE ---
Late entry: Patient received 30mg of Etomidate with 120mg of Succinylcholine
[2024-05-15 16:21] LABS: HBsAg Confirmation Positive (.); HBsAg Screen Confirm. indicated (Negative); HCV Ab Reactive (Non Reactive); Hep A Ab, IGM Negative (Negative); Hep B Core Ab, IgM Negative (Negative)
== END 2024-05-11 17:50 | disposition short-term general hospital (02) | DRG 208 ==
LOC: ER 09:35 → 2ND 12:30
PROVIDERS: Internal Medicine Pulmonary Disease; Nurse Practitioner Family; Admitting Provider Student in an Organized Health Care Education/Training Program; Emergency Provider Student in an Organized Health Care Education/Training Program; PCP Nurse Practitioner Family; Visit Provider Student in an Organized Health Care Education/Training Program
DX: J96.21 Acute and chronic respiratory failure with hypoxia (principal); K65.2 Spontaneous bacterial peritonitis; J18.9 Pneumonia, unspecified organism; R65.21 Severe sepsis with septic shock; J90 Pleural effusion, not elsewhere classified; F17.210 Nicotine dependence, cigarettes, uncomplicated; I10 Essential (primary) hypertension; K76.82 Hepatic encephalopathy; K74.69 Other cirrhosis of liver; Z86.19 Personal history of other infectious and parasitic diseases; Z79.891 Long term (current) use of opiate analgesic; Z79.899 Other long term (current) drug therapy
CPT/HCPCS: 36415; 70450; 71045; 71275; 74177; 80048; 80053; 80074; 80307; 80320; 81001; 82140; 82803; 82945; 82962; 83605; 83615; 83690; 83735; 83880; 84100; 84155; 84484; 85007; 85025; 85610; 87040; 87070; 87077; 87081; 87086; 87186; 87205; 89051; 93005; 94002; 94640; 94761; 99285; C1751; J0330; J0696; J1171; J1939; J1940; J2060; J2543; J2704; J2919; J3010; J3475; J3480; J7120; J7620; P9047; Q9967; S0028